=== PATIENT | male | born 1935 | race Caucasian/White ===

== ENCOUNTER 2016-09-12 16:47 | Inpatient (IN) | payer MEDICARE, OTHER ==
[~2016-09-12] VITALS: Ht 172.7 cm; Wt 83.2 kg
[~2016-09-12 16:47] MED LIST: /GLYB5TA OR; /TAMS4CA OR; /WARF25TA OR; ACET65TA OR; ALDA25TA2 PO; AMIO20TA PO; ASPI1TAB PO; ASPI325T OR; ATEN25TA OR; ATOR40TA PO; AVOD0.5C OR; CARV6.25 PO; CLOP75TA2 PO; COLA100C PO; FLOM5CAP PO; FURO20TA2 PO; FURO40TA2 PO; GLUC1000 OR; GLYB5TA PO; HYDR25TA6 OR; IBUP400T OR; LOTREL PO; LOVA40TA OR; METO-346 PO; MULTIVIT PO; NIFE15CA PO; ONDA4TAB6 SL; RAMI1.25 PO; RAMI5CA PO; SITA50TAB PO; SPIR25TA2 PO; TRAM50TA2 OR; VITMTA PO; XANA0.25 PO
[2016-09-12] MEDS ORDERED: CALCIUM CHLORIDE 10% 1 GM/10 ML SYR As Ordered ONE (16:59)
[2016-09-12] MEDS ORDERED: AMIODARONE 150MG/3ML INJ (J0282) As Ordered ONE (17:24)
[2016-09-12 17:28] LABS: BASO % 0.2 % (0.0-1.0); EOS # 0.1 K/mm3 (0.0-0.50); EOS % 1.5 % (0.0-3.0); LARGE UNSTAINED CELL # 0.2 K/mm3 (0.0-0.4); LARGE UNSTAINED CELL % 1.7 % (0.0-4.0); LYMPH # 0.9 K/mm3 (1.5-4.5); LYMPH % 10.4 % (24.0-44.0); MEAN CORPUSCULAR HEMOGLOBIN 29.9 pg (27.0-33.0); MEAN CORPUSCULAR HGB CONC 33.5 g/dl (32.0-36.5); MEAN CORPUSCULAR VOLUME 89.5 fl (80.0-96.0); MONO # 0.4 K/mm3 (0.0-0.8); MONO % 4.9 % (0.0-5.0); NEUTROPHILS # 7.1 K/mm3 (1.8-7.7); NEUTROPHILS % 81.3 % (36.0-66.0); PLATELET COUNT, AUTOMATED 220 k/mm3 (150-450); RED CELL DISTRIBUTION WIDTH 16.1 % (11.5-14.5); WHITE BLOOD COUNT 8.7 K/mm3 (4.0-10.0)
[2016-09-12] MEDS ORDERED: AMIODARONE HCL 360 MG/200 ML PREMIXED BAG (NEXTERONE) As Ordered ONE (17:29)
[2016-09-12 17:35] LABS: ABG BASE EXCESS -2.5 (-2.0-2.0); ABG DEVICE NASAL CANN; ABG PARTIAL PRESSURE CO2 27.2 mmHg (35.0-45.0); ABG STANDARD HCO3 22.4 MEQ/L (22.0-26.0); ABG TOTAL CO2 20.8 MEQ/L (23.0-31.0); ABG pH (ARTERIAL) 7.484 UNITS (7.350-7.450)
[2016-09-12] MEDS ORDERED: AMIO20TA PO (17:41)
[2016-09-12] MEDS ORDERED: CARV6.25 PO (17:41)
[2016-09-12] MEDS ORDERED: FURO20TA2 PO (17:41)
[2016-09-12] MEDS ORDERED: NIFE15CA PO (17:41)
[2016-09-12] MEDS ORDERED: ZOFR4TAB3 PO (17:41)
[2016-09-12] MEDS ORDERED: RAMI5CA PO (17:41)
[2016-09-12 17:54] LABS: CALCIUM LEVEL 9.1 MG/DL (8.8-10.2); CREATININE FOR GFR 2.02 MG/DL (0.70-1.30); GLOMERULAR FILTRATION RATE 33.9 (>35)
[2016-09-12 18:42] LABS: MAGNESIUM LEVEL 2.2 MG/DL (1.8-2.4)
[2016-09-12] MEDS ORDERED: DEXTROSE 50% 50 ML SYRINGE IV PRN (19:45)
[2016-09-12] MEDS ORDERED: GLUCAGON FOR INJ 1 MG VIAL (J1610) SC PRN (19:45)
[2016-09-12] MEDS ORDERED: GLUCOSE 4 GM CHEW TABLET PO PRN (19:45)
--- NOTE | 2016-09-12 20:38 | EDDOCDS ---
Physician Documentation [facility] Name: Wes Benson Age: 81 yrs Sex: Male : 1935 Arrival Date: 09/12/2016 Time: 16:47 Bed 2 Private MD: Ashok Cruz A. Disposition: 09/12/16 19:05 Hospitalization ordered by Edilma Jauregui for Inpatient Admission. Preliminary diagnosis is Ventricular tachycardia. - Bed requested for M ICU. - Status is Inpatient Admission. tmm1 - Condition is Stable. - Problem is new. - Symptoms have improved. Historical: - Allergies: PENICILLINS (Hives); Codeine Sulfate (Hives); - Home Meds: 1. glyburide 5 mg Oral tab 2 tabs once daily 2. docusate sodium 100 mg Oral cap 2 caps 2 times per day 3. amiodarone 200 mg Oral tab 1 tab 2 times per day 4. aspirin 81 mg Oral TbEC 1 tab once daily 5. Coreg 6.25 mg Oral tab 1 tab 2 times per day 6. niferex 150 mg twice a day 7. multivitamin Oral tab 1 tablet daily 8. spironolactone 25 mg Oral tab 1 tab once daily 9. atorvastatin 40 mg oral tab 1 tab once daily 10. furosemide 20 mg Oral tab 11. ramipril 5 mg Oral cap 1 cap once daily - PMHx: Anemia; Benign Prostatic Hyperplasia; Cancer, Rectal; Diabetes - NIDDM: controlled; hyperlipidemia; Hypertension; [place]; - PSHx: ICD insertion; Cholecystectomy; knee replacement; cataract; - Social history: Smoking status: Patient states former smoker of tobacco. No barriers to communication noted, The patient speaks fluent Vietnamese, Speaks appropriately for age. - Family history: Not pertinent. - : The pt / caregiver states he / she is not on anticoagulants. Home medication list is obtained from the patient. - Exposure Risk Screening:: None identified. Vital Signs: 09/12 16:50 BP 117 / 58 (auto/); mlb1 16:51 Pulse Ox 95% ; mlb1 17:00 BP 117 / 58; Pulse 64; Resp 20; Temp 97.8; Pulse Ox 96% ; Weight 81.65 kg / 180.01 lbs; jlf Pain 0/10; 17:12 BP 114 / 59 (auto/); mlb1 17:12 Pulse 126 MON; Pulse Ox 98% ; mlb1 17:15 BP 112 / 58 (auto/); mlb1 17:16 Pulse 120 MON; Pulse Ox 99% ; mlb1 17:30 BP 108 / 59 (auto/); mlb1 17:31 Pulse 120 MON; Pulse Ox 100% ; mlb1 17:45 BP 106 / 56 (auto/); mlb1 17:46 Pulse 60 MON; Pulse Ox 99% ; mlb1 17:50 BP 114 / 62 (auto/); mlb1 17:51 Pulse 120 MON; Pulse Ox 100% ; mlb1 18:00 BP 108 / 58 (auto/); mlb1 18:01 Pulse 60 MON; Pulse Ox 99% ; mlb1 18:15 BP 107 / 58 (auto/); kas2 18:15 Pulse 60 MON; Pulse Ox 99% ; kas2 18:30 BP 108 / 59 (auto/); kas2 18:30 Pulse 120 MON; Pulse Ox 99% ; kas2 18:45 BP 109 / 58 (auto/); kas2 18:45 Pulse 120 MON; Pulse Ox 99% ; kas2 19:00 BP 112 / 56 (auto/); kas2 19:00 Pulse 61 MON; Pulse Ox 99% ; kas2 19:15 BP 110 / 58 (auto/); kas2 19:15 Pulse 60 MON; Pulse Ox 99% ; kas2 19:17 Resp 18; Temp 97.9(O); Pain 0/10; kas2 19:30 BP 110 / 57 (auto/); kas2 19:30 Pulse 61 MON; Pulse Ox 98% ; kas2 19:45 BP 115 / 55 (auto/); kas2 19:45 Pulse 64 MON; Pulse Ox 99% ; kas2 20:00 BP 105 / 57 (auto/); kas2 20:00 Pulse 60 MON; Pulse Ox 99% ; kas2 20:15 BP 103 / 55 (auto/); kas2 20:15 Pulse 60 MON; Pulse Ox 99% ; kas2 20:20 Resp 18; Temp 97.6(O); kas2 MDM: 16:52 ECG WITH READING ER PHYS+CARDIAG ordered. EDMS 17:03 Cdl A Driver/Pulse Ox/q 30 min VS ordered. fg 17:03 IV Saline Lock ordered. fg 17:03 Rhythm Strip to chart ordered. fg 17:03 Undress patient appropriately for examination ordered. fg 17:04 -Arterial Blood Gas Ordered. EDMS 17:04 B-Type Natiuretic Peptide Ordered. EDMS 17:04 Basic Metabolic Profile Ordered. EDMS 17:04 CBC with Diff Ordered. EDMS 17:04 Cardiac Injury Profile Ordered. EDMS 17:04 Partial Thromboplastin Time Ordered. EDMS 17:04 Troponin Ordered. EDMS 17:04 Calcium Chloride 1 grams IVP once ordered. fg 17:05 portable chest Ordered. EDMS 17:15 BED REQUEST+ADM ordered. EDMS 17:24 amiodarone 150 mg IVP once ordered. fg 17:27 amiodarone- Slow load (1mg/min) 360 mg IV at 33 mL/hr continuous over 6 hrs; fg 360mg/200mL D5W ordered. 18:13 Financial registration complete. [facility] 18:15 [facility] Payment Agreement was scanned into [employer] and attached to record. gjb 19:00 Fingerstick Blood Sugar Ordered. EDMS 19:28 Admission / Observation Status ordered. EDMS 19:28 2 GRAM SODIUM DIET ordered. EDMS 19:29 CARDIAC MARKER PANEL Ordered. EDMS 19:31 CARDIAC MARKER PANEL Ordered. EDMS 19:32 COMPLETE BLOOD COUNT Ordered. EDMS 19:32 BASIC METABOLIC PROFILE Ordered. EDMS 20:24 MRSA SCREEN Ordered. EDMS Administered Medications: 17:06 Drug: Calcium Chloride 1 grams [calcium chloride 100 mg/mL (10 %) intravenous syringe mlb1 (10 mL)] {Co-Signature: mcp (Marisabel Orellana RN).} Route: IVP; Site: right antecubital; 17:34 Drug: amiodarone- Slow load (1mg/min) 360 mg [amiodarone 360 mg/200 mL (1.8 mg/mL) in mlb1 dextrose, iso-osmotic IV] Route: IV; Rate: 33 mL/hr; Infused Over: 6 hrs; Site: left antecubital; 17:35 Drug: amiodarone 150 mg Route: IVP; Site: left antecubital; mlb1 Signatures: Dispatcher [employer] EDMS Serina Taylor, RN RN Darryl Avilez RN RN mlb1 McLear, Nohelia, VIRTUAL CUSTOMER ASSISTANT VIRTUAL CUSTOMER ASSISTANT tmm1 Merry Key MD MD fg Beck, Gabriela gjb Marisabel Orellana RN, mcp The chart was reviewed and I authenticate all verbal orders and agree with the evaluation and treatment provided.Corrections: (The following items were deleted from the chart) 18:39 18:34 MAGNESIUM LEVEL+LAB ordered. EDMS EDMS Attachments: 18:15 [facility] Payment Agreement gjranda MTDD
--- NOTE | 2016-09-12 20:39 | EDDOCDS ---
Nurse's Notes [facility] Name: Wes Benson Age: 81 yrs Sex: Male : 1935 Arrival Date: 09/12/2016 Time: 16:47 Bed 2 Private MD: Ashok Cruz A. Diagnosis: Ventricular tachycardia Presentation: 09/12 16:48 Presenting complaint: EMS states: Unresponsive with no pulse witnessed by caregiver at mlb1 home defibrillator "went off" twice pt responsive again defibrillator went off four other times PROOF COIN COLLECTOR six total. Adult Sepsis Screening: The patient does not have new or worsening altered mentation. Patient's respiratory rate is less than 22. Systolic blood pressure is greater than 100. Patient has a qSOFA score of 0- Negative Sepsis Screen. Suicide/Homicide risk assessment- the patient denies having any suicidal and/or homicidal ideations and does not present with any other emotional, behavioral or mental health complaints. Status: Patient is not a car servicer or dependent. Transition of care: patient was not received from another setting of care. Care prior to arrival: IV initiated. Saline lock initiated. Oxygen administered by EMS. 16:48 Acuity: OPHELIA Level 2 mlb1 16:48 Method Of Arrival: Ambulance mlb1 Triage Assessment: 16:52 General: Appears comfortable, Behavior is appropriate for age, cooperative. Pain: mlb1 Location: chest Pain currently is 2 out of 10 on a pain scale. Neurological: Level of Consciousness is awake, alert, Oriented to person, place, time. Respiratory: Airway is patent Respiratory effort is even, unlabored. Derm: Skin is pale. Historical: - Allergies: PENICILLINS (Hives); Codeine Sulfate (Hives); - Home Meds: 1. glyburide 5 mg Oral tab 2 tabs once daily 2. docusate sodium 100 mg Oral cap 2 caps 2 times per day 3. amiodarone 200 mg Oral tab 1 tab 2 times per day 4. aspirin 81 mg Oral TbEC 1 tab once daily 5. Coreg 6.25 mg Oral tab 1 tab 2 times per day 6. niferex 150 mg twice a day 7. multivitamin Oral tab 1 tablet daily 8. spironolactone 25 mg Oral tab 1 tab once daily 9. atorvastatin 40 mg oral tab 1 tab once daily 10. furosemide 20 mg Oral tab 11. ramipril 5 mg Oral cap 1 cap once daily - PMHx: Anemia; Benign Prostatic Hyperplasia; Cancer, Rectal; Diabetes - NIDDM: controlled; hyperlipidemia; Hypertension; [place]; - PSHx: ICD insertion; Cholecystectomy; knee replacement; cataract; - Social history: Smoking status: Patient states former smoker of tobacco. No barriers to communication noted, The patient speaks fluent Israeli, Speaks appropriately for age. - Family history: Not pertinent. - : The pt / caregiver states he / she is not on anticoagulants. Home medication list is obtained from the patient. - Exposure Risk Screening:: None identified. Screenin:18 Screening information is obtained from the patient. Fall risk: At risk due to age. mlb1 Assistance ADL's: Requires assistance with meal preparation, this assistance is provided by family members, housework, assistance is provided by family members. Abuse/DV Screen: The patient / caregiver reports he/she is: not in a situation that causes fear, pain or injury. Nutritional screening: No deficits noted. Advance Directives: Currently, there is a health care proxy, Marisabel Benson (daughter). There is no active DNR order. home support is adequate. Assessment: 17:14 General: Appears in no apparent distress, Behavior is cooperative. Pain: Location: mlb1 chest Pain currently is 2 out of 10 on a pain scale. Cardiovascular: Rhythm is sinus tachycardia two brief runs of v-tach with defibrillator firing twice witnessed by this writer producer. Respiratory: Airway is patent Respiratory effort is even, unlabored. 18:06 General: Appears in no apparent distress, comfortable, Behavior is appropriate for age, mlb1 cooperative. Pain: Location: head Quality of pain is described as aching. Neurological: Level of Consciousness is awake, alert, Oriented to person, place, time. Respiratory: Airway is patent Respiratory effort is even, unlabored, Breath sounds are clear bilaterally. Derm: Skin is pale. 18:22 General: Appears in no apparent distress, comfortable, Behavior is appropriate for age, mlb1 cooperative. Pain: Denies pain. Cardiovascular: Rhythm is sinus rhythm with multiple brief runs on v tach defibrillator discharges and return to sinus rythm. Derm: Skin is pale. 19:00 General:. mlb1 19:01 General: Verbal report given by Dawood Palomo RN. Assumed care of patient at this time.. [facility] 19:17 General: Patient laying in bed with family at bedside. Denies pain or discomfort at kas2 this time. Appears comfortable. No apparent distress. Call valenzuela within reach. Will continue to monitor.. Vital Signs: 16:50 BP 117 / 58 (auto/); mlb1 16:51 Pulse Ox 95% ; mlb1 17:00 BP 117 / 58; Pulse 64; Resp 20; Temp 97.8; Pulse Ox 96% ; Weight 81.65 kg; Pain 0/10; jlf 17:12 BP 114 / 59 (auto/); mlb1 17:12 Pulse 126 MON; Pulse Ox 98% ; mlb1 17:15 BP 112 / 58 (auto/); mlb1 17:16 Pulse 120 MON; Pulse Ox 99% ; mlb1 17:30 BP 108 / 59 (auto/); mlb1 17:31 Pulse 120 MON; Pulse Ox 100% ; mlb1 17:45 BP 106 / 56 (auto/); mlb1 17:46 Pulse 60 MON; Pulse Ox 99% ; mlb1 17:50 BP 114 / 62 (auto/); mlb1 17:51 Pulse 120 MON; Pulse Ox 100% ; mlb1 18:00 BP 108 / 58 (auto/); mlb1 18:01 Pulse 60 MON; Pulse Ox 99% ; mlb1 18:15 BP 107 / 58 (auto/); kas2 18:15 Pulse 60 MON; Pulse Ox 99% ; kas2 18:30 BP 108 / 59 (auto/); kas2 18:30 Pulse 120 MON; Pulse Ox 99% ; kas2 18:45 BP 109 / 58 (auto/); kas2 18:45 Pulse 120 MON; Pulse Ox 99% ; kas2 19:00 BP 112 / 56 (auto/); kas2 19:00 Pulse 61 MON; Pulse Ox 99% ; kas2 19:15 BP 110 / 58 (auto/); kas2 19:15 Pulse 60 MON; Pulse Ox 99% ; kas2 19:17 Resp 18; Temp 97.9(O); Pain 0/10; kas2 19:30 BP 110 / 57 (auto/); kas2 19:30 Pulse 61 MON; Pulse Ox 98% ; kas2 19:45 BP 115 / 55 (auto/); kas2 19:45 Pulse 64 MON; Pulse Ox 99% ; kas2 20:00 BP 105 / 57 (auto/); kas2 20:00 Pulse 60 MON; Pulse Ox 99% ; kas2 20:15 BP 103 / 55 (auto/); kas2 20:15 Pulse 60 MON; Pulse Ox 99% ; kas2 20:20 Resp 18; Temp 97.6(O); kas2 Vitals: 17:19 Log In Time N/A - ambulance arrival. mlb1 ED Course: 16:48 Patient visited by Messi Brooks PCA. jrd 16:48 Patient visited by Darryl Palomo, BETI. mlb1 16:48 Ashok Cruz is Private Physician. jrd 16:48 Patient moved to Waiting jrd 16:48 Patient moved to 2 jrd 16:50 secured entrance monitor on. Pulse ox on. NIBP on. mlb1 16:51 Triage Initiated mlb1 16:56 EKG done. (by ED staff). Reviewed by Merry Key MD. jlf 16:59 Patient visited by Clay Rodas PCA. jlf 17:00 Patient visited by Clay Rodas PCA. jlf 17:06 Merry Key MD is Attending Physician. fg 17:06 Patient visited by Merry Key MD. fg 17:16 Inserted saline lock: 18 gauge in left antecubital area and blood collected. The mlb1 patient tolerated the procedure well. 17:16 Maintain field IV. Dressing intact. Site clean & dry. Gauge & site: 18 gauge right AC. mlb1 17:19 No procedures done that require assistance. mlb1 17:20 Patient visited by Darryl Palomo, BETI. mlb1 17:20 The patient / caregiver is instructed regarding the plan of care and ED course. mlb1 17:20 B-Type Natiuretic Peptide Sent. mlb1 17:20 Basic Metabolic Profile Sent. mlb1 17:20 CBC with Diff Sent. mlb1 17:20 Cardiac Injury Profile Sent. mlb1 17:20 Partial Thromboplastin Time Sent. mlb1 17:20 Troponin Sent. mlb1 17:21 Patient visited by Darryl Palomo, BETI. mlb1 17:58 Patient visited by Clay Rodas PCA. jlf 18:04 Patient visited by Clay Rodas PCA. jlf 18:04 Patient visited by Clay Rodas PCA. jlf 18:04 Assisted with urinal. jlf 18:15 [facility] Payment Agreement was scanned into [employer] and attached to record. gjb 18:24 Patient visited by Darryl Palomo RN. mlb1 18:56 Eden Figueroa RN is Primary Nurse. kas2 18:57 Attending Physician role handed off by Merry Key MD cs11 18:57 Marek Gilmore DO is Attending Physician. cs11 19:02 Patient visited by Eden Figueroa RN. kas2 19:04 Attending Physician role handed off by Marek Gilmore DO fg 19:04 Merry Key MD is Attending Physician. fg 19:05 JuventinoEdilma is Hospitalizing Provider. fg 19:18 Patient visited by Eden Figueroa RN. kas2 20:05 Patient visited by Eden Figueroa RN. kas2 20:20 Patient visited by Eden Figueroa RN. kas2 Administered Medications: 17:06 Drug: Calcium Chloride 1 grams [calcium chloride 100 mg/mL (10 %) intravenous syringe mlb1 (10 mL)] {Co-Signature: mcp (Marisabel Orellana RN).} Route: IVP; Site: right antecubital; 17:34 Drug: amiodarone- Slow load (1mg/min) 360 mg [amiodarone 360 mg/200 mL (1.8 mg/mL) in mlb1 dextrose, iso-osmotic IV] Route: IV; Rate: 33 mL/hr; Infused Over: 6 hrs; Site: left antecubital; 17:35 Drug: amiodarone 150 mg Route: IVP; Site: left antecubital; mlb1 RT: 19:04 ABG's drawn from left radial artery allens test done and positive pressure held for 5 cs15 minutes no bleeding noted pressure bandage applied specimen sent pt. tolerated well. Order Results: Lab Order: -Arterial Blood Gas; SPEC'M 09/12/16 17:28 Test: ABG pH (ARTERIAL); Value: 7.484; Range: 7.350-7.450; Abnormal: Above high normal; Units: UNITS; Status: F Test: ABG PARTIAL PRESSURE CO2; Value: 27.2; Range: 35.0-45.0; Abnormal: Below low normal; Units: mmHg; Status: F Test: ABG PARTIAL PRESSURE O2; Value: 123.0; Range: 75.0-100.0; Abnormal: Above high normal; Units: mmHg; Status: F Test: ABG TOTAL CO2; Value: 20.8; Range: 23.0-31.0; Abnormal: Below low normal; Units: MEQ/L; Status: F Test: ABG HCO3; Value: 20.0; Range: 22.0-26.0; Abnormal: Below low normal; Units: MEQ/L; Status: F Test: ABG BASE EXCESS; Value: -2.5; Range: -2.0-2.0; Abnormal: Below low normal; Status: F Test: ABG STANDARD HCO3; Value: 22.4; Range: 22.0-26.0; Units: MEQ/L; Status: F Test: ABG O2 SATURATION; Value: 98.8; Range: 95.0-99.0; Units: %; Status: F Test: ABG DEVICE; Value: NASAL WILFRID; Status: F Lab Order: B-Type Natiuretic Peptide; SPEC'M 09/12/16 17:11 Test: BRAIN NATRIURETIC PEPTIDE; Value: 2570; Range: <100; Abnormal: Above high normal; Units: PG/ML; Status: F Lab Order: Basic Metabolic Profile; SPEC'M 09/12/16 17:11 Test: GLUCOSE, FASTING; Value: 70; Range: 83-110; Abnormal: Below low normal; Units: MG/DL; Status: F Test: BLOOD UREA NITROGEN; Value: 52; Range: 7-18; Abnormal: Above high normal; Units: MG/DL; Status: F Test: CREATININE FOR GFR; Value: 2.02; Range: 0.70-1.30; Abnormal: Above high normal; Units: MG/DL; Status: F Test: GLOMERULAR FILTRATION RATE; Value: 33.9; Range: >35; Abnormal: Below low normal; Status: F Test: SODIUM LEVEL; Value: 135; Range: 136-145; Abnormal: Below low normal; Units: MEQ/L; Status: F Test: POTASSIUM SERUM; Value: 5.0; Range: 3.5-5.1; Units: MEQ/L; Status: F Test: CHLORIDE LEVEL; Value: 98; Range: 98-107; Units: MEQ/L; Status: F Test: CARBON DIOXIDE LEVEL; Value: 28; Range: 21-32; Units: MEQ/L; Status: F Test: ANION GAP; Value: 9; Range: 8-16; Units: MEQ/L; Status: F Test: CALCIUM LEVEL; Value: 9.1; Range: 8.8-10.2; Units: MG/DL; Status: F Test Note: ; Units are mL/min/1.73 m2 Chronic Kidney Disease Staging per NKF: Stage I & II GFR >=60 Normal to Mildly Decreased Stage III GFR 30-59 Moderately Decreased Stage IV GFR 15-29 Severely Decreased Stage V GFR <15 Very Little GFR Left ESRD GFR <15 on USED CAR RENOVATOR Lab Order: CBC with Diff; SPEC'M 09/12/16 17:11 Test: WHITE BLOOD COUNT; Value: 8.7; Range: 4.0-10.0; Units: K/mm3; Status: F Test: RED BLOOD COUNT; Value: 3.68; Range: 4.30-6.10; Abnormal: Below low normal; Units: M/mm3; Status: F Test: HEMOGLOBIN; Value: 11.0; Range: 14.0-18.0; Abnormal: Below low normal; Units: g/dl; Status: F Test: HEMATOCRIT; Value: 32.9; Range: 42.0-52.0; Abnormal: Below low normal; Units: %; Status: F Test: MEAN CORPUSCULAR VOLUME; Value: 89.5; Range: 80.0-96.0; Units: fl; Status: F Test: MEAN CORPUSCULAR HEMOGLOBIN; Value: 29.9; Range: 27.0-33.0; Units: pg; Status: F Test: MEAN CORPUSCULAR HGB CONC; Value: 33.5; Range: 32.0-36.5; Units: g/dl; Status: F Test: RED CELL DISTRIBUTION WIDTH; Value: 16.1; Range: 11.5-14.5; Abnormal: Above high normal; Units: %; Status: F Test: PLATELET COUNT, AUTOMATED; Value: 220; Range: 150-450; Units: k/mm3; Status: F Test: NEUTROPHILS %; Value: 81.3; Range: 36.0-66.0; Abnormal: Above high normal; Units: %; Status: F Test: LYMPH %; Value: 10.4; Range: 24.0-44.0; Abnormal: Below low normal; Units: %; Status: F Test: MONO %; Value: 4.9; Range: 0.0-5.0; Units: %; Status: F Test: EOS %; Value: 1.5; Range: 0.0-3.0; Units: %; Status: F Test: BASO %; Value: 0.2; Range: 0.0-1.0; Units: %; Status: F Test: LARGE UNSTAINED CELL %; Value: 1.7; Range: 0.0-4.0; Units: %; Status: F Test: NEUTROPHILS #; Value: 7.1; Range: 1.8-7.7; Units: K/mm3; Status: F Test: LYMPH #; Value: 0.9; Range: 1.5-4.5; Abnormal: Below low normal; Units: K/mm3; Status: F Test: MONO #; Value: 0.4; Range: 0.0-0.8; Units: K/mm3; Status: F Test: EOS #; Value: 0.1; Range: 0.0-0.50; Units: K/mm3; Status: F Test: BASO #; Value: 0.0; Range: 0.0-0.2; Units: K/mm3; Status: F Test: LARGE UNSTAINED CELL #; Value: 0.2; Range: 0.0-0.4; Units: K/mm3; Status: F Lab Order: Cardiac Injury Profile; SPEC'M 09/12/16 17:11 Test: CPK CREATINE PHOSPHOKINASE; Value: 29; Range: 39-308; Abnormal: Below low normal; Units: U/L; Status: F Test: CK-MB VALUE MASS; Value: 1.6; Range: 0.0-3.6; Units: NG/ML; Status: F Test: MB/CK RELATIVE INDEX; Value: 5.51; Range: < OR =4; Abnormal: Above high normal; Status: F Test Note: ; DIAGNOSIS CRITERIA MMB ng/ml Relative Index (RI) NON-AMI < or = 5 N/A GUILLERMO ZONE > 5 < or = 4 AMI > 5 > 4 Lab Order: Partial Thromboplastin Time; SPEC'M 09/12/16 17:11 Test: PARTIAL THROMBOPLASTIN TIME; Value: 37.1; Range: 26.6-37.1; Units: SECONDS; Status: F Lab Order: Troponin; SPEC'M 09/12/16 17:11 Test: TROPONIN I; Value: 0.21; Range: < 0.10; Abnormal: Above high normal; Units: NG/ML; Status: F Test Note: ; Troponin I Reference Interval for Siemens Semafone LOCI: 99th Percentile= 0.00-0.045 ng/ml Risk Stratification: <= 0.10 ng/ml Decreased Risk for Adverse Clinical Events. 0.10-1.50 ng/ml Increased Risk for Adverse Clinical Events. Evaluation of additional criterion and/or repeat testing in 2-6 hours is suggested to rule out myocardial damage. >= 1.50 ng/ml Indicative of Myocardial Injury. Lab Order: MAGNESIUM LEVEL; SPEC'M 09/12/16 17:11 Test: MAGNESIUM LEVEL; Value: 2.2; Range: 1.8-2.4; Units: MG/DL; Status: F Lab Order: Fingerstick Blood Sugar; SPEC'M 09/12/16 18:51 Test: BEDSIDE GLUCOSE; Value: 89; Range: 83-110; Units: MG/DL; Status: F Outcome: 19:05 Decision to Hospitalize by Provider. fg 20:19 Discharge Assessment: patient administered narcotics - no. The following High Risk [facility] Discharge criteria are identified: None. Admitted to ICU accompanied by nurse, accompanied by tech, via stretcher, with oxygen, on monitor, with chart. Condition: stable critical. No special radiology studies were completed. Property :Personal belongings accompany Pt. 20:20 Admission hand-off: Report called to Russell Nobles RN in ICU. [facility] 20:37 Patient left the ED. tmm1 Signatures: Darryl Palomo, RN RN mlb1 Marek Gilmore DO DO cs11 Gabriele, Nohelia, WIRELESS CONSULTANT WIRELESS CONSULTANT tmm1 Clay Rodas, WIRELESS CONSULTANT WIRELESS CONSULTANT Messi Guidry, WIRELESS CONSULTANT WIRELESS CONSULTANT Merry Eng MD MD fg Shelton, Caleb,RT RT cs15 Shiloh Roche KimRN RN kas2 Marisabel Orellana RN [facility] MTDD
[2016-09-12] MEDS ORDERED: FUROSEMIDE 40 MG/4 ML VIAL (J1940) IV ONE (20:56)
[2016-09-12 21:00] VITALS: BP 83/51
[2016-09-12] MEDS ORDERED: CARVedilol 6.25 MG TAB PO SCH (21:00)
[2016-09-12 21:10] VITALS: BP 104/55
--- NOTE | 2016-09-12 21:17 | HPE ---
DATE OF ADMISSION: 09/12/2016 PRIMARY CARE PROVIDER: Ashok Cruz MD DIRECTOR OF MANAGED CARE: Rodolfo Trinidad MD ONCOLOGIST: Hui Rutherford MD CHIEF COMPLAINT: Intermittent ventricular tachycardia (V-tach).. HISTORY OF PRESENT ILLNESS: The patient is an 81-year-old male with a past medical history significant for V-tach with automatic implantable cardioverter-defibrillator (AICD), non-insulin dependent diabetes, myocardial infarction (NV), rectal cancer, benign prostatic hypertrophy (BPH), hyperlipidemia, hypertension, bilateral pleural effusion, chronic kidney disease, chronic anemia presented to [facility] on 09/12/2016 for recurrence of V-tach and AICD firing. The patient stated that at approximately 2:00 to 3:00 pm this evening he was laying down and all of a sudden he started feeling the recurrence of V-tach and his AICD started firing. Per family member during the event, he did have loss of consciousness briefly. Then, he was transferred to the emergency room. He started to regain consciousness when he arrived at [facility] emergency department and his mentation recovered well and he was alert and oriented times three in the emergency room. While he was in the emergency room he has at least nine episodes of V-tach and the patient started on digoxin and amiodarone drips, and hospitalist team called for admission. The patient was just recently hospitalized at [facility] from 09/02/2016 to 09/07/2016 for decompensated systolic/diastolic congestive heart failure. He also experienced V-tach with AICD firing. His cardiac medication was adjusted during the hospitalization stay. His amiodarone dose was increased. Beta warren, his metoprolol was switched to carvedilol and decreased also his angiotensin-converting enzyme (CAIT) inhibitor. He was symptom free for at least four days and he started having symptom on 09/12/2016. He also does have a history of rectal cancer. He is not being treated due to current significant cardiac disease. He continues to have intermittent bleeding per rectum and during last admission he actually required a blood transfusion due to the bleeding. Previously the patient had chemotherapy and radiation, however, the cancer treatment was interrupted due to occurrence of the heart attack and patient started V-tach prompting the placement of AICD. The patient was seen at [facility] when those events occurred. ALLERGIES: CODEINE (rash and swelling). PENICILLIN (rash and swelling). PAST MEDICAL HISTORY: Systolic/diastolic congestive heart failure. Ventricular tachycardia. History of AICD placement. Chronic anemia. Rectal cancers, status post chemo/radiation. Did not finish therapy. Chronic kidney disease. Non-insulin dependent diabetes. Benign prostatic hypertrophy. History of coronary artery disease. Paroxysmal atrial fibrillation. Bilateral pleural effusions. Hypertension. PAST SURGICAL HISTORY: AICD placement. Cholecystectomy. Knee replacement. Cataract surgery. HOME MEDICATIONS: - amiodarone 200 mg by mouth twice a day - carvedilol 6.25 mg by mouth twice a day - iron supplement - Zofran 4 mg by mouth every 4 hours as needed for nausea and vomiting - ramipril 5 mg by mouth nightly - atorvastatin 40 mg by mouth nightly - Colace 200 mg by mouth twice a day - glyburide 10 mg by mouth twice a day - multivitamin one tablet by mouth every day - aldactone 25 mg by mouth every day - Flomax 0.4 mg by mouth nightly SOCIAL HISTORY: The patient has lived at home with his . Has 31/03 care. Quit smoking 20 years ago. Denies alcoholic beverage use. Denies any recreational drug use. The patient is a FULL CODE, however, the patient is considering DO NOT RESUSCITATE (DNR), DO NOT INTUBATE (DNI). He is requesting time to talk to his family member who is also a nurse at [facility]. REVIEW OF SYSTEMS: No fever, no chills. HEENT: Chronic headache. Lightheadedness. Denies any vision changes or auditory changes. CARDIOVASCULAR: Can feel intermittent V-tach in the past 24 hours. Has a history of myocardial infarction (NV). History of systolic/diastolic congestive heart failure. RESPIRATORY: Denies any shortness of breath, cough or sputum production. GASTROINTESTINAL (GI): The patient does have a history of rectal cancer. Has intermittent lower GI bleed. Required blood transfusion during last admission. No nausea, no vomiting, no abdominal pain, no diarrhea. MUSCULOSKELETAL: There is some lower extremity swelling due to the congestive heart failure. NEUROLOGICAL: Chronic numbness of the right fifth digit. Otherwise no new numbness or tingling. OBJECTIVE: VITAL SIGNS: Blood pressure 108/58, pulse is 60, respirations 20, temperature 97.8, pulse oximetry 99%. Body weight is 81.65 kg. PHYSICAL EXAMINATION: GENERAL: Fatigued, pale. No sign of acute distress. Alert and oriented times three. HEENT: Normocephalic, atraumatic. Extraocular movements grossly intact. CARDIOVASCULAR: Positive S1, S2, mixing with intermittent V-tach, also observed on telemetry. Distant heart sound. RESPIRATORY: Positive bilateral crackles. More significant in the right lower lobe. No wheezes appreciated. ABDOMEN: Soft, nontender, nondistended. Bowel sounds present. No rebound. No guarding. MUSCULOSKELETAL: Trace edema in the bilateral lower extremities. Pale lower extremities. No tenderness. NEUROLOGICAL: Sensation to fine touch grossly intact. Also strength 5 out of 5. LABORATORY DATA: WBC is 8.7, hemoglobin is 11. Hematocrit 32.9, platelet count is 220. Sodium 135, potassium 5, chloride is 98. BUN 52, creatinine 2.02. GFR is 33.9. Fasting glucose 70, calcium is 9.1. Magnesium 2.2. Alkaline phosphatase 29, total CK is 1.6. Troponin I is 0.21. BNP is 2570. IMAGING STUDIES: Chest x-ray: Official report pending. There is some bilateral atelectasis and there are also some pleural effusions. ASSESSMENT AND PLAN: 1. Ventricular tachycardia with AICD firing. The patient was admitted at the ICU under inpatient status. The patient received amiodarone, a loading dose of 360 mg IV times one and amiodarone drips. Supervisor Graphite, Dr. Isidro has been consulted. We appreciate his input. We will let Dr. Isidro assist on any medication changes. 2. Decompensated systolic and diastolic heart failure. Currently the patient started having sign of fluid overload. At baseline, the patient is taking Lasix 20 mg twice a day. Will give one dose IV of Lasix 40 mg. Will monitor input and output, and daily weights. 3. Rectal cancer. The patient was in the middle of chemotherapy and radiation therapy, then patient developed a heart attach and V-tach. The patient's cancer treatment is on hold. The patient is supposed to follow with oncologist to restart his chemotherapy, however, currently due to significant cardiac events, the patient's therapy is on hold. The patient is seen by Dr. Rutherford in the outpatient setting. 4. History of iron deficiency anemia. The patient does have slow bleeding per rectum from the rectal cancer. On last admission, the patient required a blood transfusion. Will monitor input and output. 5. Chronic kidney disease. 6. Non-insulin dependent diabetes. The patient will be on sliding scale and consistent carbohydrate diet. 7. Benign prostatic hypertrophy. On Flomax. 8. History of NV. On aspirin, carvedilol, ramipril and atorvastatin. 9. History of paroxysmal atrial fibrillation. 10. Bilateral pleural effusion. Currently the patient still having worsening of pleural effusion especially on the right side. Will give the patient a trial of IV Lasix. 11. Deep venous thrombosis (DVT) prophylaxis. The patient will be on heparin. 12. CHF. The patient is also on spironolactone.
[2016-09-12] MEDS: RAMIPRIL 5 MG CAP PO SCH (21:24)
[2016-09-12] MEDS ORDERED: AMIODARONE HCL 360 MG in APPROPRIATE DILUENT 1 EA IV SCH (21:30)
[2016-09-12 21:40] VITALS: BP 105/54
[2016-09-12] MEDS: TAMSULOSIN 0.4 MG CAP PO SCH (21:41)
[2016-09-12] MEDS: HEPARIN SOD (PORCINE) 5000 UNITS/ML VIAL SC SCH (21:41)
[2016-09-12] MEDS: ATORVASTATIN 20 MG TAB PO SCH (21:41)
[2016-09-12] MEDS: DOCUSATE SODIUM 100 MG CAP PO SCH (21:41)
[2016-09-12] MEDS: HumaLOG INSULIN (NovoLOG) PER UNIT SC SCH (21:55)
[2016-09-12] MEDS: IRON POLYSAC (NIFEREX) 150 MG CAP PO SCH (22:00)
[2016-09-12 22:10] VITALS: BP 101/55
[2016-09-12 22:40] VITALS: BP 97/50
[2016-09-12] MEDS: ONDANSETRON 4 MG ORAL DISINTEGRATING TAB (S0181) PO PRN (23:02)
[2016-09-12 23:10] VITALS: BP 104/55
[2016-09-12] MEDS: ALPRAZolam 0.25 MG TAB PO PRN (23:23)
[2016-09-12] MEDS: AMIODARONE HCL 360 MG in APPROPRIATE DILUENT 1 EA IV SCH (23:23)
[2016-09-13] VITALS (17 sets, daily range): BP systolic 80–102; BP diastolic 43–60
[2016-09-13] MEDS ORDERED: PREVNAR 13 VACCINE SYRINGE (CPT CODE:90670) IM SCH (03:00)
[2016-09-13] MEDS: ACETAMINOPHEN TAB 650MG DOSE (2X325MG) PO PRN (04:12)
[2016-09-13] MEDS: ONDANSETRON 4 MG ORAL DISINTEGRATING TAB (S0181) PO PRN (05:07)
[2016-09-13] MEDS: HEPARIN SOD (PORCINE) 5000 UNITS/ML VIAL SC SCH ×3 (05:08→21:38)
[2016-09-13 06:02] LABS: MEAN CORPUSCULAR HEMOGLOBIN 29.6 pg (27.0-33.0); MEAN CORPUSCULAR HGB CONC 33.1 g/dl (32.0-36.5); MEAN CORPUSCULAR VOLUME 89.6 fl (80.0-96.0); WHITE BLOOD COUNT 7.2 K/mm3 (4.0-10.0)
[2016-09-13 06:38] LABS: CALCIUM LEVEL 8.7 MG/DL (8.8-10.2); CREATININE FOR GFR 1.99 MG/DL (0.70-1.30); GLOMERULAR FILTRATION RATE 34.5 (>35); POTASSIUM SERUM 4.6 MEQ/L (3.5-5.1)
[2016-09-13] MEDS: HumaLOG INSULIN (NovoLOG) PER UNIT SC SCH ×4 (07:15→21:00)
--- NOTE | 2016-09-13 08:41 | CR ---
DATE OF CONSULTATION: 09/13/2016 INDICATION: Ventricular tachycardia storm. Referring physician is hospitalist service. HISTORY OF PRESENT ILLNESS: Mr. Benson is known to me. He is a rather unfortunate 81-year-old man who initially presented with myocardial infarction in May 2016 that was complicated by cardiogenic shock. He was transferred to [facility] in [place] and eventually left the hospital after prolonged hospitalization. He was doing clinically reasonably well until he presented with ventricular tachycardia and had to be defibrillated. He was again transferred to [facility] and after some discussion received defibrillator. He was just discharged from this facility about week ago. At that time, he was hospitalized for congestive heart failure (CHF) exacerbation and two episodes of ventricular tachycardia that were terminated by automatic implantable cardioverter defibrillator (AICD). After adjustment of his medications, he was home and was doing relatively well. But then yesterday afternoon, while he was lying in bed, he received implantable cardioverter defibrillator (ICD) shock. He does feel the arrhythmia before he gets shocked. He initially did not do anything different, but when he received second and then third shock in close succession ambulance was called. He got numerous discharges since on the way to the hospital, then in the emergency room and then even while in the hospital. He received several doses of intravenous (IV) amiodarone and was started on amiodarone drip. The last episode of ventricular fibrillation was at approximately 1:30 last night. He is obviously scared. But he denies any chest discomfort and he feels that his dyspnea has been actually somewhat better as of lately. PAST MEDICAL HISTORY: 1. Coronary artery disease, presentation with acute myocardial infarction (MT) in May 2016 complicated that cardiogenic shock. Left with severe LV systolic dysfunction. 2. Recurrent ventricular tachycardia, status post ICD. 3. Chronic anemia. 4. Rectal cancer status post radiation and chemotherapy, currently all treatment on hold and he has recurrent rectal bleeding. 5. Chronic renal insufficiency. 6. Type 2 diabetes. 7. BPH. 8. Hypertension. Surgical history is positive for cholecystectomy, knee replacement, cataracts, and ICD placement. OUTPATIENT MEDICATIONS: - amiodarone 400 a day - Coreg 6.25 twice a day - iron - Zofran - ramipril 5 a day - Lipitor 40 a day - Colace - glyburide 10 twice a day - aldactone 25 a day - Flomax SOCIAL HISTORY: Patient is . He is a raymundo. He used to smoke but quit many years ago. No alcohol use. FAMILY HISTORY: Positive for CAD. REVIEW OF SYSTEMS: He denies any recent chest pain. No nausea, vomiting. He has chronic mild diarrhea. He has also chronic mild rectal bleeding. No significant peripheral edema and no fever, chills. The rest is negative. PHYSICAL EXAMINATION: Elderly man. He appears somewhat anxious but otherwise reasonably comfortable. Last documented blood pressure 80/65, heart rate 60, mostly sinus rhythm with occasional atrial pacing. He is afebrile. Saturation is 100% on 2 liters of oxygen by nasal cannula. Jugular venous pulse (JVP) is not up. Lungs are surprisingly clear to auscultation. I do not appreciate any rub, gallop. There is a faint murmur at the apex. Abdomen soft, nontender. There is trace peripheral edema. Neurologically, he is generally weak but otherwise intact. LABORATORY DATA: Basic metabolic panel: Sodium 137, potassium 4.6, creatinine 2.0, GFR is 34, which is his baseline, and glucose 81. He had three sets of cardiac enzymes with peak troponin 0.55. BNP is 2500. CBC: Hemoglobin 9.9, hematocrit 30, and platelet 190. Chest x-ray demonstrates cardiomegaly, appropriate position of ICD leads and bilateral pleural effusions, again worse on the right than on the left. ASSESSMENT AND PLAN: Mr. Benson is in a tough situation. He is an 81-year-old man who has severe ischemic cardiomyopathy after large myocardial infarction in late May 2016 as a complicating factor and actually the dominant clinical features is recurrent be ventricular tachycardia (VT). I interrogated his ICD. He had total 28 episodes since yesterday. Some of them spontaneously terminated but most of them were terminated by defibrillation. Has not had any since 1:30 last night. He was on 400 of amiodarone once a day as an outpatient. It looks like this situation has somewhat calmed down since about 1:30. He is on IV amiodarone currently. I am going to increase the oral dose to 400 twice a day. I spoke to Dr. Edmonds the compression molding machine operator in [facility] who implanted his ICD. She advocates addition of mexiletine. Will start 150 mg twice a day, which is relatively low dose, but I am somewhat concerned that he may not tolerate the medication well. Provided he does not respond to this treatment, will have to give him IV lidocaine and consider possibly VT ablation, which in my opinion it is difficult to imagine that he would tolerate. As far as management of heart failure is concerned, even though he has bilateral effusion and his brain natriuretic peptide (BNP) is very high, he is not overly short of breath. He maintains good oxygenation. Also, his blood pressure is very low so it is for him very difficult to tolerate medications. He certainly is not a candidate for dobutamine considering his VT. I am going to change the Coreg for Toprol, which has a little bit less antihypertensive properties and hopefully he will tolerate the medications a little bit more. Otherwise, I am going to leave the dosage of diuretics unchanged. As far as coronary artery disease is concerned, I do not see anything in his presentation that would indicate that the nature of the VT is triggered by ischemia. It has been starting when he is lying in bed. He has no anginal symptoms. Unfortunately, his prognosis is poor certainly in the long run but even on short run. We will see whether the antiarrhythmics will be able to control his VT or not. JOSE
[2016-09-13] MEDS: ASPIRIN 81 MG ENTERIC TAB PO SCH (09:00)
[2016-09-13] MEDS: DOCUSATE SODIUM 100 MG CAP PO SCH ×2 (09:00→21:32)
[2016-09-13] MEDS: AMIODARONE 200 MG TAB (PACERONE) PO SCH ×2 (09:00→21:31)
[2016-09-13] MEDS: MULTIVITAMINS/MINERALS THERAP 1 TAB PO SCH (09:00)
[2016-09-13] MEDS: IRON POLYSAC (NIFEREX) 150 MG CAP PO SCH ×2 (09:00→21:31)
[2016-09-13] MEDS: METOPROLOL SUCC *XL* 25MG TAB (TopROL *XL*) PO SCH (09:00)
[2016-09-13] MEDS: MEXILETINE 150 MG CAP PO SCH ×2 (09:00→21:31)
[2016-09-13] MEDS: AMIODARONE HCL 360 MG in APPROPRIATE DILUENT 1 EA IV SCH (09:16)
--- NOTE | 2016-09-13 10:49 | REP ---
AP portable sitting chest radiograph 09/12/2016 Indication: Chest pain Comparison: Semi upright AP portable chest of 30 16 Cardiac silhouette is moderately enlarged without change. Cardiac pacer leads are unchanged. There has been interval progression of pleural effusions, moderate on right and minimal on the left. There is cephalization of pulmonary vasculature and interstitial prominence consistent with mild interstitial pulmonary edema, right greater than left. Impression: Moderate cardiomegaly, not significantly changed, with stable cardiac pacers. Progression of pleural effusions, most pronounced on the right. There is underlying bibasilar compressive atelectasis versus infiltrate, right> left. Mild interstitial pulmonary edema, right greater than left. Signed by Anushka Dukes MD 09/13/2016 10:39 A
[2016-09-13] MEDS ORDERED: ONDANSETRON 4MG/2ML VIAL (J2405) IV PRN (11:30)
--- NOTE | 2016-09-13 13:12 | IPN ---
DATE: 09/13/2016 Mr. Benson is disappointed at being rehospitalized. He is currently without pain, chest pain. He is not feeling short of breath. No dizziness and no presyncopal symptoms described. Temperature 97, pulse 60, respiratory rate 18, blood pressure 95/53, 100% on 2 liters nasal cannula. Intake and output notable for a positive fluid balance of 260. Weight is 82.2 kg with a body mass index of 27. He is awake, appropriately interactive, pleasantly conversant. Mucous membranes moist. Neck supple. Breathing is symmetrical and rested. I:E ratio is 1:3. No appreciable wheezes, rales, or rhonchi, but breath sounds are diminished. Heart is distant sounding, normal S1, S2. He is borderline bradycardic. White cell count 7.2, hemoglobin 9.9, platelets 190. BUN 50, creatinine 1.99. Troponin has been 0.21, 0.55, and repeat to 0.36, with CK now elevated to 331. My assessment is as follows: This is an 81-year-old patient who presented with ventricular tachycardia resulting in automatic implantable cardioverter-defibrillator (AICD) firing. Plan is as follows: 1. Cardiovascular. The patient has ventricular arrhythmia. Cardiology has been consulted. Patient has been on an amiodarone drip. No further ventricular events requiring AICD activation. I have discussed this case with Dr. Trinidad in person. Is currently in the intensive care unit. 2. There was concern about the possibility of systolic and diastolic decompensated heart failure. At this point, the patient seems comfortable. He has not received Lasix. Will defer management to Dr. Trinidad. 3. The patient has history of rectal cancer. He has not yet received chemotherapy. Chemotherapy is currently on hold due to his cardiac events. Dr. Lee is his outpatient oncologist. 4. The patient has mem-hrzdljo-delkhhiqx diabetes. He is currently on subcutaneous insulin and sliding scale. 5. The patient has history of myocardial infarction ([place]). 6. The patient has bilateral pleural effusions.
[2016-09-13] MEDS: TAMSULOSIN 0.4 MG CAP PO SCH (18:00)
[2016-09-13] MEDS: ATORVASTATIN 20 MG TAB PO SCH (18:00)
[2016-09-13] MEDS: ALPRAZolam 0.25 MG TAB PO PRN (21:37)
[2016-09-14] VITALS (12 sets, daily range): BP systolic 75–97; BP diastolic 37–54
[2016-09-14 04:56] LABS: MEAN CORPUSCULAR HEMOGLOBIN 29.1 pg (27.0-33.0); MEAN CORPUSCULAR HGB CONC 32.6 g/dl (32.0-36.5); MEAN CORPUSCULAR VOLUME 89.1 fl (80.0-96.0); WHITE BLOOD COUNT 7.8 K/mm3 (4.0-10.0)
[2016-09-14 05:02] LABS: CALCIUM LEVEL 8.5 MG/DL (8.8-10.2); CREATININE FOR GFR 1.84 MG/DL (0.70-1.30); GLOMERULAR FILTRATION RATE 37.8 (>35); POTASSIUM SERUM 4.6 MEQ/L (3.5-5.1)
[2016-09-14] MEDS: HEPARIN SOD (PORCINE) 5000 UNITS/ML VIAL SC SCH ×3 (05:11→21:51)
[2016-09-14] MEDS: HumaLOG INSULIN (NovoLOG) PER UNIT SC SCH ×2 (07:30→12:00)
--- NOTE | 2016-09-14 08:20 | ECGEPIP ---
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
[2016-09-14] MEDS: DOCUSATE SODIUM 100 MG CAP PO SCH ×2 (08:52→21:51)
[2016-09-14] MEDS: IRON POLYSAC (NIFEREX) 150 MG CAP PO SCH ×2 (08:53→21:51)
[2016-09-14] MEDS: MULTIVITAMINS/MINERALS THERAP 1 TAB PO SCH (08:53)
[2016-09-14] MEDS: METOPROLOL SUCC *XL* 25MG TAB (TopROL *XL*) PO SCH (08:53)
[2016-09-14] MEDS: MEXILETINE 150 MG CAP PO SCH ×2 (08:53→21:51)
[2016-09-14] MEDS: ASPIRIN 81 MG ENTERIC TAB PO SCH (08:54)
[2016-09-14] MEDS: AMIODARONE 200 MG TAB (PACERONE) PO SCH ×2 (08:54→21:51)
--- NOTE | 2016-09-14 12:53 | IPN ---
DATE OF SERVICE: 09/14/2016 Mr. Benson remains relatively stable. He had an additional episode of ventricular tachycardia since last night. He tolerates the medications reasonably well, even though he did have some nausea with mexiletine. His blood pressure remains very soft, usually in the 80s, occasionally 90s and, on occasion, drops into high 70s, but he seems to be tolerating the low blood pressure reasonably well. He has no specific complaints today other than feeling really weak. Blood pressure this morning at the time of my visit was 89/50, heart rate almost constantly 60 beats per minute. It is typically atrial paced rhythm with normal atrioventricular (AV) conduction. His jugular venous pulse does not appear elevated. Lungs are reasonably clear to auscultation but for diminished breath sounds over bases. I do not appreciate any crackles. He saturates in high 90s up to 100 on no oxygen and he is afebrile. His fluid balance yesterday was approximately equal, but weight is documented at 83.3 kg today. Abdomen is soft, nontender. There is no peripheral edema. Neurologically, besides generalized weakness, he appears intact. LABORATORY: Potassium 4.6. BUN 47, creatinine 1.94, GFR 38, glucose was 70. Complete blood count (CBC): Hemoglobin 9.5, hematocrit 29 and platelet count 198,000 ASSESSMENT AND PLAN: Mr. Casanova is an 81-year-old man who has ischemic cardiomyopathy after presenting with extensive myocardial infarction late May 2016. He was admitted because of ventricular tachycardia storm. After receiving multiple appropriate shocks eventually the situation stabilized after receiving multiple doses of intravenous (IV) amiodarone together with increased oral doses of amiodarone and oral mexiletine. Even though he did have some nausea with mexiletine it looks like he tolerated it reasonably well and I will continue the same. As far as congestive heart failure is concerned, unfortunately, most of his medications were being held because of very low blood pressure. I will continue doing the same, even though undoubtedly he has elevated filling pressure of the left ventricle. I am afraid that he would not tolerate diuretics well on account of very low blood pressure. I am hoping that starting tomorrow, we will be able to restart some of these medications. So, for the time being, he will continue receiving amiodarone, mexiletine and metoprolol. I spoke with him again today. I am modestly encouraged that we can control the ventricular tachycardia (VT), but I think this is far from over. His condition remains guarded and, in the long run, futile.
--- NOTE | 2016-09-14 15:04 | ECGEPIP ---
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
[2016-09-14] MEDS: ALPRAZolam 0.25 MG TAB PO PRN ×2 (16:18→21:50)
[2016-09-14] MEDS: ATORVASTATIN 20 MG TAB PO SCH (17:50)
[2016-09-14] MEDS: TAMSULOSIN 0.4 MG CAP PO SCH (17:50)
--- NOTE | 2016-09-14 21:39 | EDDOCDS ---
Physician Documentation [facility] Name: Wes Benson Age: 81 yrs Sex: Male : 1935 Arrival Date: 09/12/2016 Time: 16:47 Bed 2 Private MD: Ashok Cruz A. Disposition: 09/12/16 19:05 Hospitalization ordered by Edilma Jauregui for Inpatient Admission. Preliminary diagnosis is Ventricular tachycardia. - Bed requested for M ICU. - Status is Inpatient Admission. tmm1 - Condition is Stable. - Problem is new. - Symptoms have improved. Historical: - Allergies: PENICILLINS (Hives); Codeine Sulfate (Hives); - Home Meds: 1. glyburide 5 mg Oral tab 2 tabs once daily 2. docusate sodium 100 mg Oral cap 2 caps 2 times per day 3. amiodarone 200 mg Oral tab 1 tab 2 times per day 4. aspirin 81 mg Oral TbEC 1 tab once daily 5. Coreg 6.25 mg Oral tab 1 tab 2 times per day 6. niferex 150 mg twice a day 7. multivitamin Oral tab 1 tablet daily 8. spironolactone 25 mg Oral tab 1 tab once daily 9. atorvastatin 40 mg oral tab 1 tab once daily 10. furosemide 20 mg Oral tab 11. ramipril 5 mg Oral cap 1 cap once daily - PMHx: Anemia; Benign Prostatic Hyperplasia; Cancer, Rectal; Diabetes - NIDDM: controlled; hyperlipidemia; Hypertension; OK; - PSHx: ICD insertion; Cholecystectomy; knee replacement; cataract; - Social history: Smoking status: Patient states former smoker of tobacco. No barriers to communication noted, The patient speaks fluent Portuguese, Speaks appropriately for age. - Family history: Not pertinent. - : The pt / caregiver states he / she is not on anticoagulants. Home medication list is obtained from the patient. - Exposure Risk Screening:: None identified. Vital Signs: 09/12 16:50 BP 117 / 58 (auto/); mlb1 16:51 Pulse Ox 95% ; mlb1 17:00 BP 117 / 58; Pulse 64; Resp 20; Temp 97.8; Pulse Ox 96% ; Weight 81.65 kg / 180.01 lbs; jlf Pain 0/10; 17:12 BP 114 / 59 (auto/); mlb1 17:12 Pulse 126 MON; Pulse Ox 98% ; mlb1 17:15 BP 112 / 58 (auto/); mlb1 17:16 Pulse 120 MON; Pulse Ox 99% ; mlb1 17:30 BP 108 / 59 (auto/); mlb1 17:31 Pulse 120 MON; Pulse Ox 100% ; mlb1 17:45 BP 106 / 56 (auto/); mlb1 17:46 Pulse 60 MON; Pulse Ox 99% ; mlb1 17:50 BP 114 / 62 (auto/); mlb1 17:51 Pulse 120 MON; Pulse Ox 100% ; mlb1 18:00 BP 108 / 58 (auto/); mlb1 18:01 Pulse 60 MON; Pulse Ox 99% ; mlb1 18:15 BP 107 / 58 (auto/); kas2 18:15 Pulse 60 MON; Pulse Ox 99% ; kas2 18:30 BP 108 / 59 (auto/); kas2 18:30 Pulse 120 MON; Pulse Ox 99% ; kas2 18:45 BP 109 / 58 (auto/); kas2 18:45 Pulse 120 MON; Pulse Ox 99% ; kas2 19:00 BP 112 / 56 (auto/); kas2 19:00 Pulse 61 MON; Pulse Ox 99% ; kas2 19:15 BP 110 / 58 (auto/); kas2 19:15 Pulse 60 MON; Pulse Ox 99% ; kas2 19:17 Resp 18; Temp 97.9(O); Pain 0/10; kas2 19:30 BP 110 / 57 (auto/); kas2 19:30 Pulse 61 MON; Pulse Ox 98% ; kas2 19:45 BP 115 / 55 (auto/); kas2 19:45 Pulse 64 MON; Pulse Ox 99% ; kas2 20:00 BP 105 / 57 (auto/); kas2 20:00 Pulse 60 MON; Pulse Ox 99% ; kas2 20:15 BP 103 / 55 (auto/); kas2 20:15 Pulse 60 MON; Pulse Ox 99% ; kas2 20:20 Resp 18; Temp 97.6(O); kas2 MDM: 16:52 ECG WITH READING ER PHYS+CARDIAG ordered. EDMS 17:03 Potato Peeler/Pulse Ox/q 30 min VS ordered. fg 17:03 IV Saline Lock ordered. fg 17:03 Rhythm Strip to chart ordered. fg 17:03 Undress patient appropriately for examination ordered. fg 17:04 -Arterial Blood Gas Ordered. EDMS 17:04 B-Type Natiuretic Peptide Ordered. EDMS 17:04 Basic Metabolic Profile Ordered. EDMS 17:04 CBC with Diff Ordered. EDMS 17:04 Cardiac Injury Profile Ordered. EDMS 17:04 Partial Thromboplastin Time Ordered. EDMS 17:04 Troponin Ordered. EDMS 17:04 Calcium Chloride 1 grams IVP once ordered. fg 17:05 portable chest Ordered. EDMS 17:15 BED REQUEST+ADM ordered. EDMS 17:24 amiodarone 150 mg IVP once ordered. fg 17:27 amiodarone- Slow load (1mg/min) 360 mg IV at 33 mL/hr continuous over 6 hrs; fg 360mg/200mL D5W ordered. 18:13 Financial registration complete. [facility] 18:15 [facility] Payment Agreement was scanned into [employer] and attached to record. gjb 19:00 Fingerstick Blood Sugar Ordered. EDMS 19:28 Admission / Observation Status ordered. EDMS 19:28 2 GRAM SODIUM DIET ordered. EDMS 19:29 CARDIAC MARKER PANEL Ordered. EDMS 19:31 CARDIAC MARKER PANEL Ordered. EDMS 19:32 COMPLETE BLOOD COUNT Ordered. EDMS 19:32 BASIC METABOLIC PROFILE Ordered. EDMS 20:24 MRSA SCREEN Ordered. EDMS 09/13 07:16 T-Sheet-- Draft Copy was scanned into [employer] and attached to record. gb 11:52 ECG/EKG was scanned into [employer] and attached to record. gb 11:52 Trend VS was scanned into [employer] and attached to record. gb Administered Medications: 09/12 17:06 Drug: Calcium Chloride 1 grams [calcium chloride 100 mg/mL (10 %) intravenous syringe mlb1 (10 mL)] {Co-Signature: mcp (Marisabel Orellana RN).} Route: IVP; Site: right antecubital; 17:34 Drug: amiodarone- Slow load (1mg/min) 360 mg [amiodarone 360 mg/200 mL (1.8 mg/mL) in mlb1 dextrose, iso-osmotic IV] Route: IV; Rate: 33 mL/hr; Infused Over: 6 hrs; Site: left antecubital; 17:35 Drug: amiodarone 150 mg Route: IVP; Site: left antecubital; mlb1 Signatures: Dispatcher [employer] EDMS Ninfa HAYES, Serina, RN RN daq Rosalia Baez, Reg Reg gb Darryl Palomo RN RN mlb1 McLear, Nohelia, CERTIFIED REAL ESTATE APPRAISER CERTIFIED REAL ESTATE APPRAISER tmm1 Merry Key MD MD fg Beck, Gabriela gjb Mary Peters RN [facility] The chart was reviewed and I authenticate all verbal orders and agree with the evaluation and treatment provided.Corrections: (The following items were deleted from the chart) 18:39 18:34 MAGNESIUM LEVEL+LAB ordered. EDMS EDMS Attachments: 18:15 [facility] Payment Agreement gjb 09/13 07:16 T-Sheet-- Draft Copy gb 11:52 ECG/EKG Chart Complete MTDD
--- NOTE | 2016-09-14 21:39 | EDDOCDS ---
Nurse's Notes [facility] Name: Wes Benson Age: 81 yrs Sex: Male : 1935 Arrival Date: 09/12/2016 Time: 16:47 Bed 2 Private MD: Ashok Cruz A. Diagnosis: Ventricular tachycardia Presentation: 09/12 16:48 Presenting complaint: EMS states: Unresponsive with no pulse witnessed by caregiver at mlb1 home defibrillator "went off" twice pt responsive again defibrillator went off four other times [employer]IC six total. Adult Sepsis Screening: The patient does not have new or worsening altered mentation. Patient's respiratory rate is less than 22. Systolic blood pressure is greater than 100. Patient has a qSOFA score of 0- Negative Sepsis Screen. Suicide/Homicide risk assessment- the patient denies having any suicidal and/or homicidal ideations and does not present with any other emotional, behavioral or mental health complaints. Status: Patient is not a medical billing service or dependent. Transition of care: patient was not received from another setting of care. Care prior to arrival: IV initiated. Saline lock initiated. Oxygen administered by EMS. 16:48 Acuity: OPHELIA Level 2 mlb1 16:48 Method Of Arrival: Ambulance mlb1 Triage Assessment: 16:52 General: Appears comfortable, Behavior is appropriate for age, cooperative. Pain: mlb1 Location: chest Pain currently is 2 out of 10 on a pain scale. Neurological: Level of Consciousness is awake, alert, Oriented to person, place, time. Respiratory: Airway is patent Respiratory effort is even, unlabored. Derm: Skin is pale. Historical: - Allergies: PENICILLINS (Hives); Codeine Sulfate (Hives); - Home Meds: 1. glyburide 5 mg Oral tab 2 tabs once daily 2. docusate sodium 100 mg Oral cap 2 caps 2 times per day 3. amiodarone 200 mg Oral tab 1 tab 2 times per day 4. aspirin 81 mg Oral TbEC 1 tab once daily 5. Coreg 6.25 mg Oral tab 1 tab 2 times per day 6. niferex 150 mg twice a day 7. multivitamin Oral tab 1 tablet daily 8. spironolactone 25 mg Oral tab 1 tab once daily 9. atorvastatin 40 mg oral tab 1 tab once daily 10. furosemide 20 mg Oral tab 11. ramipril 5 mg Oral cap 1 cap once daily - PMHx: Anemia; Benign Prostatic Hyperplasia; Cancer, Rectal; Diabetes - NIDDM: controlled; hyperlipidemia; Hypertension; RI; - PSHx: ICD insertion; Cholecystectomy; knee replacement; cataract; - Social history: Smoking status: Patient states former smoker of tobacco. No barriers to communication noted, The patient speaks fluent Peruvian, Speaks appropriately for age. - Family history: Not pertinent. - : The pt / caregiver states he / she is not on anticoagulants. Home medication list is obtained from the patient. - Exposure Risk Screening:: None identified. Screenin:18 Screening information is obtained from the patient. Fall risk: At risk due to age. mlb1 Assistance ADL's: Requires assistance with meal preparation, this assistance is provided by family members, housework, assistance is provided by family members. Abuse/DV Screen: The patient / caregiver reports he/she is: not in a situation that causes fear, pain or injury. Nutritional screening: No deficits noted. Advance Directives: Currently, there is a health care proxy, Marisabel Benson (daughter). There is no active DNR order. home support is adequate. Assessment: 17:14 General: Appears in no apparent distress, Behavior is cooperative. Pain: Location: mlb1 chest Pain currently is 2 out of 10 on a pain scale. Cardiovascular: Rhythm is sinus tachycardia two brief runs of v-tach with defibrillator firing twice witnessed by this underwriter solicitation director. Respiratory: Airway is patent Respiratory effort is even, unlabored. 18:06 General: Appears in no apparent distress, comfortable, Behavior is appropriate for age, mlb1 cooperative. Pain: Location: head Quality of pain is described as aching. Neurological: Level of Consciousness is awake, alert, Oriented to person, place, time. Respiratory: Airway is patent Respiratory effort is even, unlabored, Breath sounds are clear bilaterally. Derm: Skin is pale. 18:22 General: Appears in no apparent distress, comfortable, Behavior is appropriate for age, mlb1 cooperative. Pain: Denies pain. Cardiovascular: Rhythm is sinus rhythm with multiple brief runs on v tach defibrillator discharges and return to sinus rythm. Derm: Skin is pale. 19:00 General:. mlb1 19:01 General: Verbal report given by Dawood Palomo RN. Assumed care of patient at this time.. [facility] 19:17 General: Patient laying in bed with family at bedside. Denies pain or discomfort at kas2 this time. Appears comfortable. No apparent distress. Call valenzuela within reach. Will continue to monitor.. Vital Signs: 16:50 BP 117 / 58 (auto/); mlb1 16:51 Pulse Ox 95% ; mlb1 17:00 BP 117 / 58; Pulse 64; Resp 20; Temp 97.8; Pulse Ox 96% ; Weight 81.65 kg; Pain 0/10; jlf 17:12 BP 114 / 59 (auto/); mlb1 17:12 Pulse 126 MON; Pulse Ox 98% ; mlb1 17:15 BP 112 / 58 (auto/); mlb1 17:16 Pulse 120 MON; Pulse Ox 99% ; mlb1 17:30 BP 108 / 59 (auto/); mlb1 17:31 Pulse 120 MON; Pulse Ox 100% ; mlb1 17:45 BP 106 / 56 (auto/); mlb1 17:46 Pulse 60 MON; Pulse Ox 99% ; mlb1 17:50 BP 114 / 62 (auto/); mlb1 17:51 Pulse 120 MON; Pulse Ox 100% ; mlb1 18:00 BP 108 / 58 (auto/); mlb1 18:01 Pulse 60 MON; Pulse Ox 99% ; mlb1 18:15 BP 107 / 58 (auto/); kas2 18:15 Pulse 60 MON; Pulse Ox 99% ; kas2 18:30 BP 108 / 59 (auto/); kas2 18:30 Pulse 120 MON; Pulse Ox 99% ; kas2 18:45 BP 109 / 58 (auto/); kas2 18:45 Pulse 120 MON; Pulse Ox 99% ; kas2 19:00 BP 112 / 56 (auto/); kas2 19:00 Pulse 61 MON; Pulse Ox 99% ; kas2 19:15 BP 110 / 58 (auto/); kas2 19:15 Pulse 60 MON; Pulse Ox 99% ; kas2 19:17 Resp 18; Temp 97.9(O); Pain 0/10; kas2 19:30 BP 110 / 57 (auto/); kas2 19:30 Pulse 61 MON; Pulse Ox 98% ; kas2 19:45 BP 115 / 55 (auto/); kas2 19:45 Pulse 64 MON; Pulse Ox 99% ; kas2 20:00 BP 105 / 57 (auto/); kas2 20:00 Pulse 60 MON; Pulse Ox 99% ; kas2 20:15 BP 103 / 55 (auto/); kas2 20:15 Pulse 60 MON; Pulse Ox 99% ; kas2 20:20 Resp 18; Temp 97.6(O); kas2 Vitals: 17:19 Log In Time N/A - ambulance arrival. mlb1 ED Course: 16:48 Patient visited by Messi Brooks PCA. jrd 16:48 Patient visited by Darryl Palomo, BETI. mlb1 16:48 Ashok Cruz is Private Physician. jrd 16:48 Patient moved to Waiting jrd 16:48 Patient moved to 2 jrd 16:50 bus driver/monitor on. Pulse ox on. NIBP on. mlb1 16:51 Triage Initiated mlb1 16:56 EKG done. (by ED staff). Reviewed by Merry Key MD. jlf 16:59 Patient visited by Clay Rodas PCA. jlf 17:00 Patient visited by Clay Rodas PCA. jlf 17:06 Merry Key MD is Attending Physician. fg 17:06 Patient visited by Merry Key MD. fg 17:16 Inserted saline lock: 18 gauge in left antecubital area and blood collected. The mlb1 patient tolerated the procedure well. 17:16 Maintain field IV. Dressing intact. Site clean & dry. Gauge & site: 18 gauge right AC. mlb1 17:19 No procedures done that require assistance. mlb1 17:20 Patient visited by Darryl Palomo, BETI. mlb1 17:20 The patient / caregiver is instructed regarding the plan of care and ED course. mlb1 17:20 B-Type Natiuretic Peptide Sent. mlb1 17:20 Basic Metabolic Profile Sent. mlb1 17:20 CBC with Diff Sent. mlb1 17:20 Cardiac Injury Profile Sent. mlb1 17:20 Partial Thromboplastin Time Sent. mlb1 17:20 Troponin Sent. mlb1 17:21 Patient visited by Darryl Palomo, BTEI. mlb1 17:58 Patient visited by Clay Rodas PCA. jlf 18:04 Patient visited by Clay Rodas PCA. jlf 18:04 Patient visited by Clay Rodas PCA. jlf 18:04 Assisted with urinal. jlf 18:15 [facility] Payment Agreement was scanned into [employer] and attached to record. gjb 18:24 Patient visited by Darryl Palomo RN. mlb1 18:56 Eden Figueroa RN is Primary Nurse. kas2 18:57 Attending Physician role handed off by Merry Key MD cs11 18:57 Marek Gilmore DO is Attending Physician. cs11 19:02 Patient visited by Eden Figueroa RN. kas2 19:04 Attending Physician role handed off by Marek Gilmore DO fg 19:04 Merry Key MD is Attending Physician. fg 19:05 Edilma Jauregui is Hospitalizing Provider. fg 19:18 Patient visited by Eden Figueroa RN. kas2 20:05 Patient visited by Eden Figueroa RN. kas2 20:20 Patient visited by Eden Figueroa RN. kas2 09/13 07:16 T-Sheet-- Draft Copy was scanned into [employer] and attached to record. gb 11:52 ECG/EKG was scanned into [email or web address] and attached to record. gb 11:52 Trend VS was scanned into [email or web address] and attached to record. gb Administered Medications: 09/12 17:06 Drug: Calcium Chloride 1 grams [calcium chloride 100 mg/mL (10 %) intravenous syringe mlb1 (10 mL)] {Co-Signature: mcp (Marisabel Orellana RN).} Route: IVP; Site: right antecubital; 17:34 Drug: amiodarone- Slow load (1mg/min) 360 mg [amiodarone 360 mg/200 mL (1.8 mg/mL) in mlb1 dextrose, iso-osmotic IV] Route: IV; Rate: 33 mL/hr; Infused Over: 6 hrs; Site: left antecubital; 17:35 Drug: amiodarone 150 mg Route: IVP; Site: left antecubital; mlb1 Attachments: 11:52 Trend VS gb RT: 09/12 19:04 ABG's drawn from left radial artery allens test done and positive pressure held for 5 cs15 minutes no bleeding noted pressure bandage applied specimen sent pt. tolerated well. Order Results: Lab Order: -Arterial Blood Gas; SPEC'M 09/12/16 17:28 Test: ABG pH (ARTERIAL); Value: 7.484; Range: 7.350-7.450; Abnormal: Above high normal; Units: UNITS; Status: F Test: ABG PARTIAL PRESSURE CO2; Value: 27.2; Range: 35.0-45.0; Abnormal: Below low normal; Units: mmHg; Status: F Test: ABG PARTIAL PRESSURE O2; Value: 123.0; Range: 75.0-100.0; Abnormal: Above high normal; Units: mmHg; Status: F Test: ABG TOTAL CO2; Value: 20.8; Range: 23.0-31.0; Abnormal: Below low normal; Units: MEQ/L; Status: F Test: ABG HCO3; Value: 20.0; Range: 22.0-26.0; Abnormal: Below low normal; Units: MEQ/L; Status: F Test: ABG BASE EXCESS; Value: -2.5; Range: -2.0-2.0; Abnormal: Below low normal; Status: F Test: ABG STANDARD HCO3; Value: 22.4; Range: 22.0-26.0; Units: MEQ/L; Status: F Test: ABG O2 SATURATION; Value: 98.8; Range: 95.0-99.0; Units: %; Status: F Test: ABG DEVICE; Value: NASAL WILFRID; Status: F Lab Order: B-Type Natiuretic Peptide; SPEC'M 09/12/16 17:11 Test: BRAIN NATRIURETIC PEPTIDE; Value: 2570; Range: <100; Abnormal: Above high normal; Units: PG/ML; Status: F Lab Order: Basic Metabolic Profile; SPEC'M 09/12/16 17:11 Test: GLUCOSE, FASTING; Value: 70; Range: 83-110; Abnormal: Below low normal; Units: MG/DL; Status: F Test: BLOOD UREA NITROGEN; Value: 52; Range: 7-18; Abnormal: Above high normal; Units: MG/DL; Status: F Test: CREATININE FOR GFR; Value: 2.02; Range: 0.70-1.30; Abnormal: Above high normal; Units: MG/DL; Status: F Test: GLOMERULAR FILTRATION RATE; Value: 33.9; Range: >35; Abnormal: Below low normal; Status: F Test: SODIUM LEVEL; Value: 135; Range: 136-145; Abnormal: Below low normal; Units: MEQ/L; Status: F Test: POTASSIUM SERUM; Value: 5.0; Range: 3.5-5.1; Units: MEQ/L; Status: F Test: CHLORIDE LEVEL; Value: 98; Range: 98-107; Units: MEQ/L; Status: F Test: CARBON DIOXIDE LEVEL; Value: 28; Range: 21-32; Units: MEQ/L; Status: F Test: ANION GAP; Value: 9; Range: 8-16; Units: MEQ/L; Status: F Test: CALCIUM LEVEL; Value: 9.1; Range: 8.8-10.2; Units: MG/DL; Status: F Test Note: ; Units are mL/min/1.73 m2 Chronic Kidney Disease Staging per NKF: Stage I & II GFR >=60 Normal to Mildly Decreased Stage III GFR 30-59 Moderately Decreased Stage IV GFR 15-29 Severely Decreased Stage V GFR <15 Very Little GFR Left ESRD GFR <15 on STUDIO ASSISTANT Lab Order: CBC with Diff; SPEC'M 09/12/16 17:11 Test: WHITE BLOOD COUNT; Value: 8.7; Range: 4.0-10.0; Units: K/mm3; Status: F Test: RED BLOOD COUNT; Value: 3.68; Range: 4.30-6.10; Abnormal: Below low normal; Units: M/mm3; Status: F Test: HEMOGLOBIN; Value: 11.0; Range: 14.0-18.0; Abnormal: Below low normal; Units: g/dl; Status: F Test: HEMATOCRIT; Value: 32.9; Range: 42.0-52.0; Abnormal: Below low normal; Units: %; Status: F Test: MEAN CORPUSCULAR VOLUME; Value: 89.5; Range: 80.0-96.0; Units: fl; Status: F Test: MEAN CORPUSCULAR HEMOGLOBIN; Value: 29.9; Range: 27.0-33.0; Units: pg; Status: F Test: MEAN CORPUSCULAR HGB CONC; Value: 33.5; Range: 32.0-36.5; Units: g/dl; Status: F Test: RED CELL DISTRIBUTION WIDTH; Value: 16.1; Range: 11.5-14.5; Abnormal: Above high normal; Units: %; Status: F Test: PLATELET COUNT, AUTOMATED; Value: 220; Range: 150-450; Units: k/mm3; Status: F Test: NEUTROPHILS %; Value: 81.3; Range: 36.0-66.0; Abnormal: Above high normal; Units: %; Status: F Test: LYMPH %; Value: 10.4; Range: 24.0-44.0; Abnormal: Below low normal; Units: %; Status: F Test: MONO %; Value: 4.9; Range: 0.0-5.0; Units: %; Status: F Test: EOS %; Value: 1.5; Range: 0.0-3.0; Units: %; Status: F Test: BASO %; Value: 0.2; Range: 0.0-1.0; Units: %; Status: F Test: LARGE UNSTAINED CELL %; Value: 1.7; Range: 0.0-4.0; Units: %; Status: F Test: NEUTROPHILS #; Value: 7.1; Range: 1.8-7.7; Units: K/mm3; Status: F Test: LYMPH #; Value: 0.9; Range: 1.5-4.5; Abnormal: Below low normal; Units: K/mm3; Status: F Test: MONO #; Value: 0.4; Range: 0.0-0.8; Units: K/mm3; Status: F Test: EOS #; Value: 0.1; Range: 0.0-0.50; Units: K/mm3; Status: F Test: BASO #; Value: 0.0; Range: 0.0-0.2; Units: K/mm3; Status: F Test: LARGE UNSTAINED CELL #; Value: 0.2; Range: 0.0-0.4; Units: K/mm3; Status: F Lab Order: Cardiac Injury Profile; SPEC'M 09/12/16 17:11 Test: CPK CREATINE PHOSPHOKINASE; Value: 29; Range: 39-308; Abnormal: Below low normal; Units: U/L; Status: F Test: CK-MB VALUE MASS; Value: 1.6; Range: 0.0-3.6; Units: NG/ML; Status: F Test: MB/CK RELATIVE INDEX; Value: 5.51; Range: < OR =4; Abnormal: Above high normal; Status: F Test Note: ; DIAGNOSIS CRITERIA MMB ng/ml Relative Index (RI) NON-AMI < or = 5 N/A GUILLERMO ZONE > 5 < or = 4 AMI > 5 > 4 Lab Order: Partial Thromboplastin Time; SPEC'M 09/12/16 17:11 Test: PARTIAL THROMBOPLASTIN TIME; Value: 37.1; Range: 26.6-37.1; Units: SECONDS; Status: F Lab Order: Troponin; SPEC'M 09/12/16 17:11 Test: TROPONIN I; Value: 0.21; Range: < 0.10; Abnormal: Above high normal; Units: NG/ML; Status: F Test Note: ; Troponin I Reference Interval for Biart LOCI: 99th Percentile= 0.00-0.045 ng/ml Risk Stratification: <= 0.10 ng/ml Decreased Risk for Adverse Clinical Events. 0.10-1.50 ng/ml Increased Risk for Adverse Clinical Events. Evaluation of additional criterion and/or repeat testing in 2-6 hours is suggested to rule out myocardial damage. >= 1.50 ng/ml Indicative of Myocardial Injury. Lab Order: MAGNESIUM LEVEL; SPEC'M 09/12/16 17:11 Test: MAGNESIUM LEVEL; Value: 2.2; Range: 1.8-2.4; Units: MG/DL; Status: F Lab Order: Fingerstick Blood Sugar; SPEC'M 09/12/16 18:51 Test: BEDSIDE GLUCOSE; Value: 89; Range: 83-110; Units: MG/DL; Status: F Outcome: 19:05 Decision to Hospitalize by Provider. fg 20:19 Discharge Assessment: patient administered narcotics - no. The following High Risk [facility] Discharge criteria are identified: None. Admitted to ICU accompanied by nurse, accompanied by tech, via stretcher, with oxygen, on monitor, with chart. Condition: stable critical. No special radiology studies were completed. Property :Personal belongings accompany Pt. 20:20 Admission hand-off: Report called to Russell Nobles RN in ICU. [facility] 20:37 Patient left the ED. tm Signatures: Rosalia Baez, Reg Reg gb Darryl Palomo, RN RN mlb1 Marek Gilmore, DO cs11 Nohelia Suazo, OPTHALMIC TECH OPTHALMIC TECH tmm1 Clay Rodas, OPTHALMIC TECH OPTHALMIC TECH frankif Messi Brooks, OPTHALMIC TECH OPTHALMIC TECH jrd Merry Key MD MD fg Shelton, Caleb,RT RT cs15 Shiloh Roche Kim,RN RN kas2 Marisabel Orellana RN mcp Chart Complete MTDD
--- NOTE | 2016-09-14 21:39 | EDDOCDS ---
Physician Documentation [facility] Name: Wes Benson Age: 81 yrs Sex: Male : 1935 Arrival Date: 09/12/2016 Time: 16:47 Bed 2 Private MD: Ashok Cruz A. Disposition: 09/12/16 19:05 Hospitalization ordered by Edilma Jauregui for Inpatient Admission. Preliminary diagnosis is Ventricular tachycardia. - Bed requested for M ICU. - Status is Inpatient Admission. tmm1 - Condition is Stable. - Problem is new. - Symptoms have improved. Historical: - Allergies: PENICILLINS (Hives); Codeine Sulfate (Hives); - Home Meds: 1. glyburide 5 mg Oral tab 2 tabs once daily 2. docusate sodium 100 mg Oral cap 2 caps 2 times per day 3. amiodarone 200 mg Oral tab 1 tab 2 times per day 4. aspirin 81 mg Oral TbEC 1 tab once daily 5. Coreg 6.25 mg Oral tab 1 tab 2 times per day 6. niferex 150 mg twice a day 7. multivitamin Oral tab 1 tablet daily 8. spironolactone 25 mg Oral tab 1 tab once daily 9. atorvastatin 40 mg oral tab 1 tab once daily 10. furosemide 20 mg Oral tab 11. ramipril 5 mg Oral cap 1 cap once daily - PMHx: Anemia; Benign Prostatic Hyperplasia; Cancer, Rectal; Diabetes - NIDDM: controlled; hyperlipidemia; Hypertension; IA; - PSHx: ICD insertion; Cholecystectomy; knee replacement; cataract; - Social history: Smoking status: Patient states former smoker of tobacco. No barriers to communication noted, The patient speaks fluent Uzbek, Speaks appropriately for age. - Family history: Not pertinent. - : The pt / caregiver states he / she is not on anticoagulants. Home medication list is obtained from the patient. - Exposure Risk Screening:: None identified. Vital Signs: 09/12 16:50 BP 117 / 58 (auto/); mlb1 16:51 Pulse Ox 95% ; mlb1 17:00 BP 117 / 58; Pulse 64; Resp 20; Temp 97.8; Pulse Ox 96% ; Weight 81.65 kg / 180.01 lbs; jlf Pain 0/10; 17:12 BP 114 / 59 (auto/); mlb1 17:12 Pulse 126 MON; Pulse Ox 98% ; mlb1 17:15 BP 112 / 58 (auto/); mlb1 17:16 Pulse 120 MON; Pulse Ox 99% ; mlb1 17:30 BP 108 / 59 (auto/); mlb1 17:31 Pulse 120 MON; Pulse Ox 100% ; mlb1 17:45 BP 106 / 56 (auto/); mlb1 17:46 Pulse 60 MON; Pulse Ox 99% ; mlb1 17:50 BP 114 / 62 (auto/); mlb1 17:51 Pulse 120 MON; Pulse Ox 100% ; mlb1 18:00 BP 108 / 58 (auto/); mlb1 18:01 Pulse 60 MON; Pulse Ox 99% ; mlb1 18:15 BP 107 / 58 (auto/); kas2 18:15 Pulse 60 MON; Pulse Ox 99% ; kas2 18:30 BP 108 / 59 (auto/); kas2 18:30 Pulse 120 MON; Pulse Ox 99% ; kas2 18:45 BP 109 / 58 (auto/); kas2 18:45 Pulse 120 MON; Pulse Ox 99% ; kas2 19:00 BP 112 / 56 (auto/); kas2 19:00 Pulse 61 MON; Pulse Ox 99% ; kas2 19:15 BP 110 / 58 (auto/); kas2 19:15 Pulse 60 MON; Pulse Ox 99% ; kas2 19:17 Resp 18; Temp 97.9(O); Pain 0/10; kas2 19:30 BP 110 / 57 (auto/); kas2 19:30 Pulse 61 MON; Pulse Ox 98% ; kas2 19:45 BP 115 / 55 (auto/); kas2 19:45 Pulse 64 MON; Pulse Ox 99% ; kas2 20:00 BP 105 / 57 (auto/); kas2 20:00 Pulse 60 MON; Pulse Ox 99% ; kas2 20:15 BP 103 / 55 (auto/); kas2 20:15 Pulse 60 MON; Pulse Ox 99% ; kas2 20:20 Resp 18; Temp 97.6(O); kas2 MDM: 16:52 ECG WITH READING ER PHYS+CARDIAG ordered. EDMS 17:03 Trouble Locator Test Desk/Pulse Ox/q 30 min VS ordered. fg 17:03 IV Saline Lock ordered. fg 17:03 Rhythm Strip to chart ordered. fg 17:03 Undress patient appropriately for examination ordered. fg 17:04 -Arterial Blood Gas Ordered. EDMS 17:04 B-Type Natiuretic Peptide Ordered. EDMS 17:04 Basic Metabolic Profile Ordered. EDMS 17:04 CBC with Diff Ordered. EDMS 17:04 Cardiac Injury Profile Ordered. EDMS 17:04 Partial Thromboplastin Time Ordered. EDMS 17:04 Troponin Ordered. EDMS 17:04 Calcium Chloride 1 grams IVP once ordered. fg 17:05 portable chest Ordered. EDMS 17:15 BED REQUEST+ADM ordered. EDMS 17:24 amiodarone 150 mg IVP once ordered. fg 17:27 amiodarone- Slow load (1mg/min) 360 mg IV at 33 mL/hr continuous over 6 hrs; fg 360mg/200mL D5W ordered. 18:13 Financial registration complete. [facility] 18:15 [facility] Payment Agreement was scanned into [employer] and attached to record. gjb 19:00 Fingerstick Blood Sugar Ordered. EDMS 19:28 Admission / Observation Status ordered. EDMS 19:28 2 GRAM SODIUM DIET ordered. EDMS 19:29 CARDIAC MARKER PANEL Ordered. EDMS 19:31 CARDIAC MARKER PANEL Ordered. EDMS 19:32 COMPLETE BLOOD COUNT Ordered. EDMS 19:32 BASIC METABOLIC PROFILE Ordered. EDMS 20:24 MRSA SCREEN Ordered. EDMS 09/13 07:16 T-Sheet-- Draft Copy was scanned into [employer] and attached to record. gb 11:52 ECG/EKG was scanned into [employer] and attached to record. gb 11:52 Trend VS was scanned into [employer] and attached to record. gb Administered Medications: 09/12 17:06 Drug: Calcium Chloride 1 grams [calcium chloride 100 mg/mL (10 %) intravenous syringe mlb1 (10 mL)] {Co-Signature: mcp (Marisabel Orellana RN).} Route: IVP; Site: right antecubital; 17:34 Drug: amiodarone- Slow load (1mg/min) 360 mg [amiodarone 360 mg/200 mL (1.8 mg/mL) in mlb1 dextrose, iso-osmotic IV] Route: IV; Rate: 33 mL/hr; Infused Over: 6 hrs; Site: left antecubital; 17:35 Drug: amiodarone 150 mg Route: IVP; Site: left antecubital; mlb1 Signatures: Dispatcher [employer] EDMS Ninfa HAYES, Serina, RN RN daq Rosalia Baez, Reg Reg gb Darryl Palomo RN RN mlb1 McLear, Nohelia, COMPLAINT SPECIALIST COMPLAINT SPECIALIST tmm1 Merry Key MD MD fg Beck, Gabriela gjb Mary Peters RN [facility] The chart was reviewed and I authenticate all verbal orders and agree with the evaluation and treatment provided.Corrections: (The following items were deleted from the chart) 18:39 18:34 MAGNESIUM LEVEL+LAB ordered. EDMS EDMS Attachments: 18:15 [facility] Payment Agreement gjb 09/13 07:16 T-Sheet-- Draft Copy gb 11:52 ECG/EKG Chart Complete MTDD
--- NOTE | 2016-09-14 21:50 | REPUSA ---
CLINICAL HISTORY: Right upper extremity pain. COMMENTS: Real time sonography with duplex doppler of the right upper extremity was performed with attention to the major deep venous structures. The right internal jugular, cephalic, basilic, radial and ulnar veins all reveal complete lumen compr essibility without intraluminal thrombus. The right subclavian and axillary veins are also clear of t hrombus. There is normal spontaneous phasic flow and augmentation throughout the deep veins. IMPRESSION: No evidence of DVT in the right upper extremity. Thank you for your kind referral of this patient.
[2016-09-15] VITALS (18 sets, daily range): BP systolic 75–92; BP diastolic 40–55
[2016-09-15 04:53] LABS: MEAN CORPUSCULAR HEMOGLOBIN 29.7 pg (27.0-33.0); MEAN CORPUSCULAR HGB CONC 32.9 g/dl (32.0-36.5); MEAN CORPUSCULAR VOLUME 90.4 fl (80.0-96.0); RED CELL DISTRIBUTION WIDTH 17.2 % (11.5-14.5); WHITE BLOOD COUNT 8.8 K/mm3 (4.0-10.0)
[2016-09-15 05:01] LABS: CALCIUM LEVEL 8.6 MG/DL (8.8-10.2); CREATININE FOR GFR 1.95 MG/DL (0.70-1.30); GLOMERULAR FILTRATION RATE 35.3 (>35); POTASSIUM SERUM 4.8 MEQ/L (3.5-5.1)
[2016-09-15] MEDS: ACETAMINOPHEN TAB 650MG DOSE (2X325MG) PO PRN (05:08)
[2016-09-15] MEDS: HEPARIN SOD (PORCINE) 5000 UNITS/ML VIAL SC SCH ×3 (05:08→21:31)
[2016-09-15] MEDS: FUROSEMIDE 20 MG TAB PO SCH ×2 (09:00→18:06)
[2016-09-15] MEDS: SPIRONOLACTONE 25 MG TAB PO SCH (09:00)
[2016-09-15] MEDS: ASPIRIN 81 MG ENTERIC TAB PO SCH (09:35)
[2016-09-15] MEDS: MULTIVITAMINS/MINERALS THERAP 1 TAB PO SCH (09:35)
[2016-09-15] MEDS: AMIODARONE 200 MG TAB (PACERONE) PO SCH ×2 (09:35→21:32)
[2016-09-15] MEDS: IRON POLYSAC (NIFEREX) 150 MG CAP PO SCH ×2 (09:35→21:32)
[2016-09-15] MEDS: MEXILETINE 150 MG CAP PO SCH ×3 (09:36→21:32)
[2016-09-15] MEDS: METOPROLOL SUCC *XL* 25MG TAB (TopROL *XL*) PO SCH (09:36)
[2016-09-15] MEDS: DOCUSATE SODIUM 100 MG CAP PO SCH ×2 (09:36→21:00)
--- NOTE | 2016-09-15 12:13 | IPN ---
DATE: 09/15/2016 Mr. Benson had a relatively uneventful night. He is not overly short of breath at rest and he also denies dizziness even though his blood pressure remains very soft. He has been afebrile. Vital signs this morning reveal blood pressure 87/51, heart rate in pretty much the 60s. Saturation in low to mid 90s on room air. His fluid balance yesterday was documented about 800 positive. Weight is 83.2 kg, which is unchanged. Jugular venous pulse (JVP) is not elevated. Lungs are fairly clear to auscultation even though over bases they are diminished. I do not appreciate any wheezing or crackles. Abdomen is soft and nontender. No peripheral edema. Laboratory-parker, hemoglobin 9.2, hematocrit 28, platelet count 208. Basic metabolic panel: potassium 4.8, BUN 48, creatinine 1.9 for a GFR 35 and glucose 179. ASSESSMENT/PLAN: Mr. Benson is an 81-year-old man who has severe ischemic cardiomyopathy and came with ventricular tachycardia (VT) storm. Thankfully, it responded to administration of IV amiodarone and higher dose of oral amiodarone together with oral mexiletine. It appears that he does tolerate the oral mexiletine reasonably well and consequently I am going to increase the dose to three times a day. No plan for coronary angiography unless recurrence. I am not convinced that he would tolerate VT ablation. As far as congestive heart failure is concerned, the management is severely compromised by his severely low blood pressure. Most of the time, we have to hold his diuretics, but I have to admit that he does not appear grossly volume overloaded even though he does have some pleural effusions. Also, we had to discontinue his CAIT inhibitors as his blood pressure was just too soft. Fortunately, he is not overly symptomatic from that perspective. No changes will be made today.
[2016-09-15] MEDS: ALPRAZolam 0.25 MG TAB PO PRN ×2 (15:48→21:32)
[2016-09-15] MEDS: ATORVASTATIN 20 MG TAB PO SCH (18:05)
[2016-09-15] MEDS: RAMIPRIL 5 MG CAP PO SCH (18:06)
[2016-09-15] MEDS: TAMSULOSIN 0.4 MG CAP PO SCH (18:06)
[2016-09-16] VITALS (7 sets, daily range): BP systolic 77–97; BP diastolic 43–51
[2016-09-16] MEDS: ALPRAZolam 0.25 MG TAB PO PRN ×2 (02:48→18:38)
[2016-09-16 04:53] LABS: MEAN CORPUSCULAR HGB CONC 33.6 g/dl (32.0-36.5); MEAN CORPUSCULAR VOLUME 89.4 fl (80.0-96.0); RED CELL DISTRIBUTION WIDTH 16.1 % (11.5-14.5); WHITE BLOOD COUNT 7.6 K/mm3 (4.0-10.0)
--- NOTE | 2016-09-16 05:04 | IPN ---
DATE OF SERVICE: 09/14/2016 Mr. Benson is feeling relatively well today. He has no complaints of pain, chest pain, shortness of breath. Has not described any activations of his automatic implantable cardioverter-defibrillator (AICD) overnight. Seems a little more comfortable than yesterday. Temperature 96, pulse 50, respiratory rate 20, blood pressure 89/54, 98% on 1 liter. Intake and output (I and O) notable for a positive fluid balance of 191. Two bowel movements noted yesterday. He is awake, appropriately interactive, pleasantly conversant. Breathing is symmetrical. I:E ratio is 1:3. Speaking in complete sentences. Heart is distant sounding, normal S1, S2, is not tachycardic. Distal pulses 2+. Capillary refill less than 2 seconds. Abdomen soft, doughy, nontender. White cell count 7.8, hemoglobin 9.5. BUN 47. My assessment is as follows: This is an 81-year-old who presented with ventricular tachycardia resulting in automatic implantable cardioverter-defibrillator (AICD) firing. Plan is as follows: 1. Cardiovascular. Greatly appreciative to Dr. Trinidad for his management of complex medical condition and relatively exotic medications. I will continue to defer to his management. 2. Patient has history of rectal cancer. Not yet on chemotherapy. Chemotherapy has been on hold due to his recent cardiac events. Outpatient oncologist is Dr. Lee. 3. Patient has ses-ronjwis-olyddrvll diabetes. He is on sliding-scale insulin. Fingersticks are trending low even without receiving insulin in the current setting. Withhold insulin at this time.
[2016-09-16 05:08] LABS: CREATININE FOR GFR 2.05 MG/DL (0.70-1.30); GLOMERULAR FILTRATION RATE 33.3 (>35); POTASSIUM SERUM 4.8 MEQ/L (3.5-5.1)
[2016-09-16] MEDS: MEXILETINE 150 MG CAP PO SCH ×3 (05:15→21:35)
[2016-09-16] MEDS: HEPARIN SOD (PORCINE) 5000 UNITS/ML VIAL SC SCH ×2 (05:15→13:02)
[2016-09-16] MEDS: IRON POLYSAC (NIFEREX) 150 MG CAP PO SCH (08:12)
[2016-09-16] MEDS: DOCUSATE SODIUM 100 MG CAP PO SCH ×2 (08:12→21:35)
[2016-09-16] MEDS: AMIODARONE 200 MG TAB (PACERONE) PO SCH ×2 (08:12→21:35)
[2016-09-16] MEDS: MULTIVITAMINS/MINERALS THERAP 1 TAB PO SCH (08:12)
[2016-09-16] MEDS: FUROSEMIDE 20 MG TAB PO SCH ×2 (08:12→18:04)
[2016-09-16] MEDS: METOPROLOL SUCC *XL* 25MG TAB (TopROL *XL*) PO SCH (08:13)
[2016-09-16] MEDS: ASPIRIN 81 MG ENTERIC TAB PO SCH (08:13)
--- NOTE | 2016-09-16 08:28 | IPN ---
DATE: 09/16/2016 Mr. Benson had a relatively good night. He was able to get some sleep. His blood pressure remains low. The last documented is 77/43, but for the most part in 80s. Heart rate is principally atrially paced rhythm with ventricular rate 60 beats per minute. He has been afebrile and saturation is in the low 90s on room air. His fluid balance yesterday was slightly positive. Weight is unchanged at 83.2 kg. He is alert and oriented and appropriate. His JVP is not high. There are decreased breath sounds over bases, unchanged. No wheezing, rhonchi or crackles. Heart exam regular rhythm. There is a blowing murmur at the apex about 2/6 intensity. I do not appreciate any gallop. Abdomen is soft. There is no peripheral edema. Laboratory parker, hemoglobin is 8.9, hematocrit 26.5 and platelet count 201,000. Basic metabolic panel potassium 4.8, BUN 51, creatinine 2.1 and calculated GFR is 33, glucose 180. ASSESSMENT/PLAN: Mr. Benson is an 81-year-old man who has severe ischemic cardiomyopathy who presents with a VT storm. It is probably still related to his MA even though it has been about 3 months. I do not believe that the patient is a good candidate for VT ablation due to the extensive nature of the procedure and his overall frail status. Fortunately, we were able to stabilize the arrhythmia on high dose of amiodarone (he is currently on 400 twice a day) plus mexiletine. Fortunately, he has been tolerating the medications reasonably well. From the perspective of heart failure, he is very difficult to treat because of his low blood pressure. He also has concomitant renal insufficiency. On his current regimen, even though he does have pleural effusions and he gets short of breath, activity is fortunately comfortable at rest. No changes by me today. He can be moved to PCU if necessary. I do expect that he will go home in few days. Edited 09/16/2016 @ 0948 rm GARCIA
[2016-09-16] MEDS ORDERED: MORP1SOL PO (10:25)
[2016-09-16] MEDS ORDERED: AMIO20TA PO (10:25)
[2016-09-16] MEDS ORDERED: METO25TA74 PO (10:25)
[2016-09-16] MEDS ORDERED: ATRO1OPD PO (10:25)
[2016-09-16] MEDS ORDERED: MEXI15CA PO (10:25)
[2016-09-16] MEDS ORDERED: ALPR0.25 PO (10:25)
--- NOTE | 2016-09-16 10:52 | DSES ---
DATE OF ADMISSION: 09/12/2016 DATE OF DISCHARGE: 09/17/2016 Specialists involved in care include Dr. Rodolfo Trinidad. No complications during his stay. No procedures performed during his stay. DISCHARGE DIAGNOSES: Coronary artery disease with severe left ventricular systolic dysfunction. Ischemic cardiomyopathy. Recurrent ventricular tachycardia. Chronic anemia. Rectal cancer status post radiation and chemo. Chronic renal insufficiency. Type 2 diabetes. Benign prostatic hypertrophy (BPH). Hypertension. SUMMARY OF HOSPITALIZATION: This is an 81-year-old man who presented with multiple appropriate shocks from his automatic implantable cardioverter- defibrillator (AICD) due to ventricular tachycardia. He had further episodes of ventricular fibrillation. He was seen in consultation by Dr. Trinidad who discussed the case with an race car driver. Medications were adjusted. Given the patient's recent course, his known rectal carcinoma he elected to pursue comfort care with his family. He would like to go home with hospice, which will be arranged. The patient's primary care doctor is Dr. Cruz. The patient can have diet and activity as tolerated. He has a hospital bed at home already. Discharge instructions will include the following: Followup as needed. Activity as tolerated. Diet as tolerated. DISCHARGE MEDICATIONS: - Xanax 0.25 mg every 8 hours as needed #12 - amiodarone 400 mg by mouth twice daily - atropine drops as needed for terminal secretions - Toprol succinate 25 mg by mouth daily - mexiletine 150 mg by mouth every 8 hours - morphine sulfate in the form or Roxanol every 2 hours as needed for pain or shortness of breath - aspirin 81 mg by mouth daily - atorvastatin 40 mg by mouth in the evening - Colace 200 mg by mouth twice daily - Lasix 20 mg by mouth twice daily - Zofran 4 mg every 6 hours as needed for nausea and vomiting - ramipril 5 mg by mouth every evening - spironolactone 25 mg by mouth daily Discontinue previously ordered amiodarone. Discontinue Coreg. Discontinue glyburide. Discontinue Niferex. Discontinue multivitamin. Discontinue Flomax. The patient is DO NOT RESUSCITATE. Edited 09/16/2016 @ 1106 [facility] JOSE
--- NOTE | 2016-09-16 11:38 | IPN ---
DATE OF VISIT: 09/15/2016 Mr. Benson is feeling well this morning. He is in good spirits. He tells me a joke which is what you get when you put three ducks in a box, answer is a box of quackers. He is not complaining of pain, chest pain, shortness of breath. PHYSICAL EXAMINATION: VITAL SIGNS: Temperature 96, pulse 60, respiratory rate 16, blood pressure 81/42, 93% on room air. INPUT AND OUTPUT (I and O): Notable for positive fluid balance of 875. He has had multiple bowel movements noted. GENERAL: He is awake and in good spirits. Moist mucous membranes. NECK: Supple. CHEST: Breathing is symmetrical, rested. HEART: Regular rate and rhythm. ABDOMEN: Soft, doughy, nontender. LABORATORY DATA: WBC 8.8, hemoglobin 9.2, BUN 48, creatinine 1.95. Sodium 134. ASSESSMENT: This is an 81-year-old with severe ischemic cardiomyopathy who presented with ventricular tachycardia resulting in automatic implantable cardio converter-defibrillator (AICD) firing. PLAN: 1. Cardiovascular: I have discussed the case in person with Dr. Trinidad. The patient appears grossly fluid overloaded but would benefit from diuresis although his blood pressure will not currently allow it. He is tolerating his antiarrhythmic medication at this point. His overall prognosis would appear to be poor. 2. The patient has history of rectal cancer. He is passing multiple small mucoid and bloody bowel movements. Chemotherapy is currently on hold due to his cardiac events. 3. The patient has non insulin dependent diabetes. He had been on a sliding scale. At this point he had been declining his daily fingersticks in order to monitor his level of control. 4. The patient has coronary artery disease. 5. The patient has bilateral pleural effusions.
[2016-09-16] MEDS: SPIRONOLACTONE 25 MG TAB PO SCH (13:01)
[2016-09-16] MEDS ORDERED: PREVNAR 13 VACCINE SYRINGE (CPT CODE:90670) IM ONE (13:30)
[2016-09-16] MEDS: RAMIPRIL 5 MG CAP PO SCH (18:00)
[2016-09-16] MEDS: TAMSULOSIN 0.4 MG CAP PO SCH (18:04)
[2016-09-16] MEDS: ATORVASTATIN 20 MG TAB PO SCH (18:04)
[2016-09-17] MEDS: ALPRAZolam 0.25 MG TAB PO PRN ×3 (04:22→09:09)
[2016-09-17] MEDS: MEXILETINE 150 MG CAP PO SCH (05:17)
[2016-09-17] MEDS: ACETAMINOPHEN TAB 650MG DOSE (2X325MG) PO PRN (05:18)
[2016-09-17] MEDS: DOCUSATE SODIUM 100 MG CAP PO SCH (09:09)
[2016-09-17] MEDS: METOPROLOL SUCC *XL* 25MG TAB (TopROL *XL*) PO SCH (09:09)
[2016-09-17] MEDS: SPIRONOLACTONE 25 MG TAB PO SCH (09:09)
[2016-09-17] MEDS: AMIODARONE 200 MG TAB (PACERONE) PO SCH (09:09)
[2016-09-17] MEDS: ASPIRIN 81 MG ENTERIC TAB PO SCH (09:09)
[2016-09-17] MEDS: FUROSEMIDE 20 MG TAB PO SCH (09:10)
--- NOTE | 2016-09-17 10:36 | IPNPDOC ---
Text Note Date of Service The patient was seen on 09/17/16 at 10:35. NOTE DISCHARGE ADDENDUM: Patient discharged today - 09/17/16 - home with hospice. AICD deactivated prior to discharge. No changes to discharge summary or instructions for discharge as per discharge summary from 09/16/16. Please refer to discharge summary for full details. VS,Fishbone, I+O VS, Fishbone, I+O Vital Signs Date Time Temp Pulse Resp B/P Pulse Ox O2 Delivery O2 Flow Rate FiO2 09/16/16 19:30 Room Air 09/16/16 08:13 60 83/45 09/16/16 08:00 97.5 18 98 09/14/16 15:01 1.0 I&O- Last 24 Hours up to 6 AM 09/17/16 06:00 Intake Total 480 ml Output Total 500 ml Balance -20 ml HOWARD RUIZ MD Sep 17, 2016 10:36
--- NOTE | 2016-09-17 12:15 | IPNPDOC ---
[facility] Cardiology Progress Note Date of Service/Time The patient was seen on 09/17/16 Cardiology Progress Note Mr Benson is an 81 y/o male who initially presented with multiple firing of his his automatic implantable cardioverter-defibrillator due to VT storm. The pt. has known rectal cancer and chemotherapy has been held in light of his current medical condition. The patients heart failure is unfortunately difficult to treat as he is hypotensive and has renal insufficiency. In light of his prognosis, the patient and his family have decided to make him hospice care and he will go home today. The pt was seen at bedside where his AICD was deactivated, he is encouraged to continue on his Amiodorone 400 mg BID and mexiletine anti-arrhythmic medications as these have stabilized his arrhythmia. The patient seems comfortable laying in bed. His AICD has been turned off. The patient is encouraged to contact our office if he should have any further questions or concerns. OBJECTIVE: PHYSICAL EXAMINATION: VITAL SIGNS: Please see below. GENERAL APPEARANCE: Laying comfortably in bed, pleasant, family is at bedside HEENT: NCAT, PERRLA, moist mucus membranes LUNGS: diminished, no wheezing appreciated HEART: seems to be primarily atrially paced, his ventricular rate is in the low 60's. Normal S1 and S2. ABDOMEN: soft, non-distended. SKIN: intact without abrasion NEUROLOGICAL: no focal deficits appreciated PSYCHIATRIC: normal and appropriate affect LABORATORY WORK: Please see below. ASSESSMENT AND PLAN: 1. . 2. . 3. . Vital Signs/I&O VS/I&O Vital Signs Date Time Temp Pulse Resp B/P Pulse Ox O2 Delivery O2 Flow Rate FiO2 09/17/16 09:10 Room Air 09/16/16 08:13 60 83/45 09/16/16 08:00 97.5 18 98 09/14/16 15:01 1.0 I&O- Last 24 Hours up to 6 AM 09/17/16 06:00 Intake Total 480 ml Output Total 500 ml Balance -20 ml Laboratory Data 24H LABS Laboratory Tests 2 09/17/16 05:11: Bedside Glucose (Misc Panel) 151H FSBS Laboratory Tests Test 09/17/16 05:11 Range/Units Bedside Glucose (Misc Panel) 151 83-110 MG/DL Microbiology Microbiology 09/16/16 MRSA Screen, Received Pending 09/12/16 MRSA Screen - Final, Complete GME ATTESTATION GME ATTESTATION My preceptor for this patient encounter was physically present in the building during the encounter and was fully available. As needed, all aspects of the patient interview, examination, medical decision making process, and medical care plan development were reviewed and approved by the preceptor. Preceptor is aware and concurs with the plan as stated in the body of this note and will attest to such by his/her cosignature. FLORENCIO BAXTER DO Sep 17, 2016 12:15
== END 2016-09-17 13:25 | disposition home or self-care (01) | DRG 308 ==
LOC: M ED 16:47 → M ED INP 19:25 → M ICU 20:39 → M MSPAV 09-16 13:26
PROVIDERS: ADMIT Internal Medicine; ATTEND Internal Medicine
DX: I47.2 Ventricular tachycardia (principal); I50.43 Acute on chronic combined systolic (congestive) and diastolic (congestive) heart failure; I13.0 Hypertensive heart and chronic kidney disease with heart failure and stage 1 through stage 4 chronic kidney disease, or unspecified chronic kidney disease; C20 Malignant neoplasm of rectum; J90 Pleural effusion, not elsewhere classified; Z66 Do not resuscitate; E11.9 Type 2 diabetes mellitus without complications; N40.0 Benign prostatic hyperplasia without lower urinary tract symptoms; I48.0 Paroxysmal atrial fibrillation; I25.5 Ischemic cardiomyopathy; D50.0 Iron deficiency anemia secondary to blood loss (chronic); N18.9 Chronic kidney disease, unspecified; I25.10 Atherosclerotic heart disease of native coronary artery without angina pectoris; I25.2 Old myocardial infarction; Z88.5 Allergy status to narcotic agent; Z88.0 Allergy status to penicillin; Z90.49 Acquired absence of other specified parts of digestive tract; Z96.659 Presence of unspecified artificial knee joint; Z87.891 Personal history of nicotine dependence; Z92.3 Personal history of irradiation; Z82.49 Family history of ischemic heart disease and other diseases of the circulatory system; Z95.810 Presence of automatic (implantable) cardiac defibrillator; Z79.82 Long term (current) use of aspirin; Z79.899 Other long term (current) drug therapy